=== PATIENT | female | born 1970 | race Caucasian/White ===

== ENCOUNTER 2016-06-04 16:15 | Emergency (ER) | payer OTHER ==
[2016-06-04 16:22] VITALS: TEMP 97.9
[2016-06-04] MEDS ORDERED: ONDANSETRON 4 MG/2 ML VIAL IVP STA (16:30)
[2016-06-04] MEDS ORDERED: KETOROLAC 30 MG/ML 1 ML VIAL IVP STA (16:30)
[2016-06-04] MEDS ORDERED: SODIUM CHLORIDE 0.9% 1,000 ML IV STA (16:30)
--- NOTE | 2016-06-04 16:34 | ED ---
Abdominal Pain HPI - General Chief Complaint: Abdominal Pain Stated Complaint: poss kidney/uti problem Time Seen by Provider: 06/04/16 16:24 Source: patient, RN notes reviewed Mode of arrival: ambulatory Limitations: no limitations - History of Present Illness Initial Comments: 38-year-old female presents emergency Department chief complaint of bilateral flank pain. Patient states this started last night. Patient states she took her Medications for back pain did not help. Patient states that she has history of back pain but this seems different. Patient states she has had some nausea with it. Patient denies any changes in bladder habits. Patient states she recently finished antibiotics for UTI. Patient states she was concerned due to the continued symptoms that she thought that she should be evaluated. Patient denies any recent fever, chills, shortness of breath, chest pain, abdominal pain, nausea vomiting, numbness or tingling, dysuria or hematuria, constipation or diarrhea, headaches or visual changes, or any other current symptoms. - Related Data Home Medications Medication Instructions Recorded Confirmed Citalopram Hydrobromide [CeleXA] 30 mg PO DAILY 12/13/14 06/04/16 Levothyroxine Sodium [Synthroid] 75 mcg PO DAILY 12/13/14 06/04/16 HYDROcodone/APAP 5-325MG [[place] 1 tab PO BID PRN 06/04/16 06/04/16 5-325] Ibuprofen/Diphenhydramine Cit 2 tab PO HS PRN 06/04/16 06/04/16 [Motrin Pm Caplet] Pregabalin [Lyrica] 75 mg PO BID PRN 06/04/16 06/04/16 Allergies Allergy/AdvReac Type Severity Reaction Status Date / Time Sulfa (Sulfonamide Allergy Rash/Hives Verified 06/04/16 16:36 Antibiotics) Review of Systems ROS Statement: Those systems with pertinent positive or pertinent negative responses have been documented in the HPI. ROS Other: All systems not noted in ROS Statement are negative. Past Medical History Past Medical History: Thyroid Disorder Additional Past Medical History / Comment(s): chronic digestive problems and 10 herniated discs History of Any Multi-Drug Resistant Organisms: None Reported Past Surgical History: No Surgical Hx Reported Past Psychological History: Anxiety, Depression Smoking Status: Never smoker Past Alcohol Use History: Occasional Past Drug Use History: Marijuana General Exam - General Exam Comments Initial Comments: General: The patient is awake and alert, in no distress, and does not appear acutely ill. Eye: Pupils are equal, round and reactive to light, extra-ocular movements are intact; there is normal conjunctiva bilaterally. No signs of icterus. Ears, nose, mouth and throat: There are moist mucous membranes and no oral lesions. Neck: The neck is supple, there is no tenderness. Cardiovascular: There is a regular rate and rhythm. No murmur, rub or gallop is appreciated. Respiratory: Lungs are clear to auscultation, respirations are non-labored, breath sounds are equal. No wheezes, stridor, rales, or rhonchi. Gastrointestinal: Soft, non-distended, non-tender abdomen without masses or organomegaly noted. There is no rebound or guarding present. No CVA tenderness. Bowel sounds are unremarkable. Back: There is no tenderness to palpation in the midline. There is no obvious deformity. No rashes noted. Musculoskeletal: Normal ROM, no tenderness, There is no pedal edema. There is no calf tenderness or swelling. Sensation intact. Pulses equal bilaterally 2+. Neurological: CN II-XII intact, There are no obvious motor or sensory deficits. Coordination appears grossly intact. Speech is normal. Skin: Skin is warm and dry and no rashes or lesions are noted. Psychiatric: Cooperative, appropriate mood & affect, normal judgment. Limitations: no limitations Course Vital Signs 06/04/16 06/04/16 16:19 17:01 Temperature 97.9 F Pulse Rate 91 67 Respiratory 18 18 Rate Blood Pressure 120/80 113/68 O2 Sat by Pulse 100 99 Oximetry Medical Decision Making - Medical Decision Making 46-year-old female presents for bilateral flank pain. Patient's CAT scan labwork is reviewed and negative. We did send the urine for culture. This time we discussed follow-up return parameters for we discussed that the child is not sick emergency room with continued outpatient follow-up is recommended. Patient states she understood and is agreement with the plan. This time she will be discharged. - Lab Data Result diagrams: 06/04/16 16:58 06/04/16 16:58 Lab Results 06/04/16 06/04/16 06/04/16 Range/Units 16:58 16:58 16:58 WBC 6.3 (3.8-10.6) k/uL RBC 3.84 (3.80-5.40) m/uL Hgb 11.7 (11.4-16.0) gm/dL Hct 35.2 (34.0-46.0) % MCV 91.6 (80.0-100.0) fL MCH 30.3 (25.0-35.0) pg MCHC 33.1 (31.0-37.0) g/dL RDW 12.1 (11.5-15.5) % Plt Count 262 (150-450) k/uL Neutrophils % 64 % Lymphocytes % 24 % Monocytes % 6 % Eosinophils % 4 % Basophils % 1 % Neutrophils # 4.0 (1.3-7.7) k/uL Lymphocytes # 1.5 (1.0-4.8) k/uL Monocytes # 0.4 (0-1.0) k/uL Eosinophils # 0.2 (0-0.7) k/uL Basophils # 0.0 (0-0.2) k/uL Sodium 142 (137-145) mmol/L Potassium 3.7 (3.5-5.1) mmol/L Chloride 106 (98-107) mmol/L Carbon Dioxide 26 (22-30) mmol/L Anion Gap 10 mmol/L BUN 9 (7-17) mg/dL Creatinine 0.60 (0.52-1.04) mg/dL Est GFR (MDRD) Af Amer >60 (>60 ml/min/1.73 sqM) Est GFR (MDRD) Non-Af >60 (>60 ml/min/1.73 sqM) Glucose 79 (74-99) mg/dL Calcium 8.8 (8.4-10.2) mg/dL Total Bilirubin 0.2 (0.2-1.3) mg/dL AST 20 (14-36) U/L ALT 28 (9-52) U/L Alkaline Phosphatase 52 (38-126) U/L Total Protein 5.9 L (6.3-8.2) g/dL Albumin 3.8 (3.5-5.0) g/dL Amylase 47 (30-110) U/L Lipase 108 (23-300) U/L Urine Color Yellow Urine Appearance Cloudy H (Clear) Urine pH 6.5 (5.0-8.0) Ur Specific [place] 1.016 (1.001-1.035) Urine Protein Negative (Negative) Urine Glucose (UA) Negative (Negative) Urine Ketones Negative (Negative) Urine Blood Trace H (Negative) Urine Nitrate Negative (Negative) Urine Bilirubin Negative (Negative) Urine Urobilinogen <2.0 (<2.0) mg/dL Ur Leukocyte Esterase Negative (Negative) Urine RBC 2 (0-5) /hpf Urine WBC 18 H (0-5) /hpf Ur Squamous Epith Cells 11 H (0-4) /hpf Amorphous Sediment Rare H (None) /hpf Urine Bacteria Many H (None) /hpf Urine Mucus Rare H (None) /hpf - Radiology Data Radiology results: report reviewed, image reviewed Disposition Clinical Impression: Bilateral flank pain Disposition: HOME SELF-CARE Condition: Stable Instructions: Flank Pain (ED) Additional Instructions: Please use medication as discussed. Please follow up with family doctor if symptoms have not improved over the next two days. Please return to the emergency room if your symptoms increase or worsen or for any other concerns. Referrals: Paul Castañeda MD [Primary Care Provider] - 1-2 days Time of Disposition: 18:24
[2016-06-04 17:35] LABS: Basophils % (A) 1 %; CH 30.4; CHCM 33.3; Eosinophils # (A) 0.2 k/uL (0-0.7); Eosinophils % (A) 4 %; HCT 35.2 % (34.0-46.0); HDW 2.28; HGB 11.7 gm/dL (11.4-16.0); Luc # (Auto) 0.14; Luc % (Auto) 2; Lymphocytes # (A) 1.5 k/uL (1.0-4.8); Lymphocytes % (A) 24 %; MCH 30.3 pg (25.0-35.0); MCHC 33.1 g/dL (31.0-37.0); MCV 91.6 fL (80.0-100.0); Mean Platelet Volume 7.8; Monocytes # (A) 0.4 k/uL (0-1.0); Monocytes % (A) 6 %; Neutrophils % (A) 64 %; RBC 3.84 m/uL (3.80-5.40); RDW 12.1 % (11.5-15.5); WBC 6.3 k/uL (3.8-10.6); WBC (Perox) 6.47
[2016-06-04 17:42] LABS: ALT 28 U/L (9-52); AST 20 U/L (14-36); Alkaline Phosphatase 52 U/L (38-126); Amylase 47 U/L (30-110); Anion Gap 10 mmol/L; Blood Urea Nitrogen 9 mg/dL (7-17); Calcium 8.8 mg/dL (8.4-10.2); Carbon Dioxide 26 mmol/L (22-30); Chloride 106 mmol/L (98-107); Glucose 79 mg/dL (74-99); Non-African American GFR(MDRD) >60 (>60 ml/min/1.73 sqM); Potassium 3.7 mmol/L (3.5-5.1); Sodium 142 mmol/L (137-145); Total Bilirubin 0.2 mg/dL (0.2-1.3); Total Protein 5.9 g/dL (6.3-8.2)
[2016-06-04 17:43] LABS: Amorphous Sediment,Urine Rare /hpf; Appearance,Urine Cloudy (Clear); Bacteria,Urine Many /hpf; Bilirubin,Urine Negative (Negative); Glucose,Urine (UA) Negative (Negative); Ketones,Urine Negative (Negative); Leukocyte Esterase,Urine Negative (Negative); Mucus,Urine Rare /hpf; Nitrite,Urine Negative (Negative); PH, Urine 6.5 (5.0-8.0); Particle Count 6614; Protein,Urine Negative (Negative); RBC,Urine 2 /hpf (0-5); Specific Gravity,Urine 1.016 (1.001-1.035); Squamous Epithelial Cell,Urine 11 /hpf (0-4); UA Billing (MACRO vs. MICRO) MICRO; Urobilinogen,Urine <2.0 mg/dL (<2.0); WBC,Urine 18 /hpf (0-5)
--- NOTE | 2016-06-04 18:07 | CT ---
EXAMINATION TYPE: CT abdomen pelvis wo con DATE OF EXAM: 06/04/2016 5:50 PM COMPARISON: NONE HISTORY: Patient complains of bilateral flank pain and increased urinary frequency. CT DLP: 482 mGycm Automated exposure control for dose reduction was used. TECHNIQUE: Helical acquisition of images was performed from the lung bases through the pelvis. FINDINGS: LUNG BASES: No significant abnormality is appreciated. LIVER/GB: No significant abnormality is appreciated. PANCREAS: No significant abnormality is seen. SPLEEN: No significant abnormality is seen. ADRENALS: No significant abnormality is seen. KIDNEYS: No significant abnormality is seen. No hydronephrosis. No renal or ureteral or bladder calci fications. ADENOPATHY: None visualized REPRODUCTIVE ORGANS: No acute process, though retroverted fibroid uterus is noted. URINARY BLADDER: No significant abnormality is seen. OSSEOUS STRUCTURES: No significant abnormality is seen. BOWEL: No significant abnormality is seen. IMPRESSION: No acute process, CT abdomen and pelvis without contrast.
[2016-06-04 18:33] VITALS: BP 109/72; PULSE 70; RESP 16
== END 2016-06-04 18:33 | disposition home or self-care (01) ==
LOC: EC 16:15
DX: R10.9 Unspecified abdominal pain (principal); E07.9 Disorder of thyroid, unspecified; F32.9 Major depressive disorder, single episode, unspecified; Z79.899 Other long term (current) drug therapy; Z88.2 Allergy status to sulfonamides
CPT/HCPCS: 99284; 96374; 96375; 96361; 36415; 80053; 82150; 83690; 85025; 81001; 87040; 87086; 74176; J2405; J1885

== ENCOUNTER → 2016-06-29 | Outpatient (CLI) | payer OTHER ==
--- NOTE | 2016-06-29 19:05 | CT ---
EXAMINATION TYPE: CT abdomen pelvis wo con DATE OF EXAM: 06/29/2016 6:55 PM COMPARISON: 06/04/2016 HISTORY: Bilateral upper flank pain CT DLP: 1004 mGycm Automated exposure control for dose reduction was used. TECHNIQUE: Helical acquisition of images was performed from the lung bases through the pelvis. FINDINGS: Lung bases are clear. There is no pleural effusion. Heart size is normal. Liver spleen pancreas appear normal. Gallbladder appears normal. Bile ducts are nondilated. There is no adrenal mass. Kidneys have normal size and contour. There is no hydronephrosis. There is no retroperitoneal adenopathy. There is no ascites. I see no intestinal wall thickening. There are no dilated loops. Appendix appears normal. There is no evidence of a pelvic mass. There are spondylotic changes in the lower lumbar spine. Uterus is retroverted. IMPRESSION: NEGATIVE CT SCAN OF THE ABDOMEN AND PELVIS. NORMAL APPENDIX. NO ADVERSE CHANGE COMPARED TO OLD EXAM.
== END | disposition home or self-care (01) ==
LOC: RADCTMAIN 18:28
PROVIDERS: ATTEND Family Medicine
DX: R31.9 Hematuria, unspecified (principal)
CPT/HCPCS: 74176

== ENCOUNTER 2016-07-26 08:49 | Day surgery (SDC) | payer OTHER ==
[2016-07-25 09:09] VITALS: BMI 27.4
[~2016-07-26 08:49] MED LIST: LACTATED RINGERS 1,000 ML IV SCH; LIDOCAINE 1% 20 ML VIAL (10MG/ML) FOR IV START INTRADERMA PRN
[2016-07-26 09:34] VITALS: RESP 18; TEMP 97.1
[2016-07-26] MEDS ORDERED: DEXAMETHASONE SOD PHOSPHATE 10 MG/ML 1 ML VIAL IV STA (09:45)
[2016-07-26] MEDS ORDERED: ONDANSETRON 4 MG/2 ML VIAL IVP STA (09:45)
[2016-07-26] MEDS ORDERED: MIDAZOLAM 2 MG/2 ML VIAL ONE (10:20)
[2016-07-26] MEDS ORDERED: PROPOFOL 10 MG/ML 20 ML VIAL IV ONE (10:20)
[2016-07-26] MEDS ORDERED: fentaNYL (PF) 50 MCG/ML 2 ML AMP ONE (10:20)
--- NOTE | 2016-07-26 10:49 | P.PCN ---
Date of Procedure: 07/26/16 Procedure(s) Performed: Procedure: Colonoscopy and polypectomy. Preoperative diagnosis: Abdominal pain and change in bowel habits. Postoperative diagnosis: 1. Small sigmoid polyp snared but no large polyps or cancer. 2. Exam to the cecum, otherwise, within normal limits. Preparation: HalfLytely prep. Sedation: Was provided by anesthesia. Brief clinical history: The patient is a 46-year-old female who is referred for this evaluation because of left-sided abdominal pains and issues with constipation. The patient requires laxatives on a regular basis otherwise would not have a bowel movement many days at the time. No bleeding or other alarm symptoms. No family history of colon cancer. She had a prior colonoscopy more than 8 years ago. Procedure: With the patient on her left lateral decubitus position and after informed consent and adequate sedation, the perianal area was inspected and it did not show any fissures or fistulas. There were no masses felt on digital rectal examination. The Olympus CFQ 160L video colonoscope was then inserted in the rectum in the usual fashion and advanced to the cecum. The mucosa appeared healthy. There was a small polyp in the sigmoid around 40 cm from the anal verge which was snared and retrieved by suction but there were no large polyps or cancer. No obvious diverticular disease or other pathology. The patient tolerated the procedure well. Plan: The patient was reassured. It is likely that her issues are related to constipation predominant irritable bowel syndrome. With the finding of polyps, I recommended repeat exam in 5 years. She will follow-up with you as planned.
[2016-07-26 11:12] VITALS: BP 112/71; PULSE 60
== END 2016-07-26 11:36 | disposition home or self-care (01) ==
LOC: ORWHC2ENDO 08:49
DX: D12.5 Benign neoplasm of sigmoid colon (principal); E07.9 Disorder of thyroid, unspecified; F39 Unspecified mood [affective] disorder; Z79.899 Other long term (current) drug therapy; Z88.2 Allergy status to sulfonamides
CPT/HCPCS: 81025; 88305; 45385; J2250; J3010; J2704; 99153

== ENCOUNTER → 2016-08-08 | Outpatient (CLI) | payer OTHER ==
--- NOTE | 2016-08-08 12:27 | WWHP ---
DATE OF SERVICE: 08/08/2016 CHIEF COMPLAINT: The patient is here for her routine gynecologic exam and mammogram. HPI: This is a 46-year-old G3, P2-0-1-2 with an LMP of 07/20/16. Her is status post vasectomy. The patient states her periods have gotten slightly more irregular over the last year and have been about every 3 to 6 weeks. She thinks she may have a yeast infection. Over the last 2 days she has noticed a thicker white discharge with pruritus and burning in the genital area. She denies odor. She did douche about a week before the vaginitis symptoms arose. She typically gets about 2 yeast infections per year. She denies any new sexual partners. PAST MEDICAL HISTORY: Hypothyroidism, chronic back problems and depression. Dr. Paul Castañeda is her primary care physician. MEDICATIONS: 1. Celexa 25 mg daily. 2. Synthroid 75 mcg daily. 3. [place] b.i.d. p.r.n. Allergies to SULFA, which caused a rash. PAST SURGICAL HISTORY: Vein stripping in the left leg in the past, colonoscopy in 2017. PAST OB HISTORY: Two vaginal deliveries and one voluntary termination of . 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 She has no history of STDs. SOCIAL HISTORY: She quit smoking in 2001 and has about 4 to 6 alcoholic drinks per week and occasionally uses marijuana. She denies any other drug use. She has been since 1992. She works at the [employer] in [place]. FAMILY HISTORY: Mother had some type of blood abnormality, [place] and diabetes. She denies family history of cancer of the breast, uterus, ovaries or colon. REVIEW OF SYSTEMS: She believes she has gained about 10 pounds over the last year. She denies respiratory, cardiac, or GI problems. PHYSICAL EXAM: Blood pressure 106/71. Height 5 feet 6 inches. Weight 175 pounds. Temperature 97.2, pulse 91. This a well-developed, well-nourished white female who is alert and oriented x3 in no acute distress. HEENT is within normal limits. NECK: Supple without mass or thyromegaly. CHEST AND LUNGS: Clear to auscultation. HEART: Regular rate and rhythm. Breasts are without mass or discharge. Axillary exam is negative for adenopathy. BACK: Negative for CVA tenderness. ABDOMEN: Soft, nontender, without palpable masses. PELVIC EXAM: Normal external genitalia. Cervix and vagina reveals some thick whitish discharge without odor. Cervix appears normal but is slightly friable upon doing the Pap smear. There is no evidence of prolapse. The uterus is multiparous, nongravid size and it is retroverted. There are no palpable adnexal masses or tenderness. Rectal exam was refused by the patient. EXTREMITIES: Nontender. IMPRESSION: 1. A 46-year-old female with Yoly vaginitis and otherwise normal gynecologic exam. 2. Possible history of uterine fibroids with incomplete database. PLAN: 1. Pap smear was performed. 2. Self breast examination was discussed. 3. Mammogram will be done today. 4. Diflucan 150 mg 1 p.o. q.48 hours x2 doses and 2 refills were given to the patient. She will get the refills if she has symptoms typical of a yeast infection. 5. We will obtain her CT scan results that apparently showed uterine fibroids to review. 6. She will return in one year and p.r.n.
--- NOTE | 2016-08-09 11:20 | MM ---
Reason for exam: screening (asymptomatic). Last mammogram was performed 1 year ago. Physical Findings: A clinical breast exam by your physician is recommended on an annual basis and results should be correlated with mammographic findings. MG Screening Mammo w CAD Bilateral CC and MLO view(s) were taken. Prior study comparison: August 08, 2015, bilateral MG screening mammo w CAD. August 02, 2014, bilateral MG screening mammo w CAD. The breast tissue is heterogeneously dense. This may lower the sensitivity of mammography. Left upper outer quadrant lymph node stable. No significant changes when compared with prior studies. ASSESSMENT: Benign, BI-RAD 2 RECOMMENDATION: Routine screening mammogram of both breasts in 1 year.
== END | disposition home or self-care (01) ==
LOC: WWCWWP 11:06
PROVIDERS: ATTEND Obstetrics & Gynecology
DX: Z12.31 Encounter for screening mammogram for malignant neoplasm of breast (principal)

== ENCOUNTER → 2016-10-22 | Outpatient (CLI) | payer OTHER ==
--- NOTE | 2016-10-23 10:44 | ECHOF ---
Referral Reason:R01.1 Cardiac Murmur MEASUREMENTS -------- HEIGHT: 167.6 cm WEIGHT: 77.1 kg BP: 121/70 RVIDd: 2.8 cm (< 3.3) IVSd: 1.0 cm (0.6 - 1.1) LVIDd: 4.2 cm (3.9 - 5.3) LVPWd: 0.9 cm (0.6 - 1.1) IVSs: 1.4 cm LVIDs: 2.8 cm LVPWs: 1.3 cm LA Diam: 3.2 cm (2.7 - 3.8) LAESV Index (A-L): 19.80 ml/m Ao Diam: 3.4 cm (2.0 - 3.7) AV Cusp: 2.1 cm (1.5 - 2.6) MV EXCURSION: 21.171 mm (> 18.000) MV EF SLOPE: 114 mm/s (70 - 150) EPSS: 1.2 cm MV E Lang: 0.94 m/s MV DecT: 214 ms MV A Lang: 0.76 m/s MV E/A Ratio: 1.25 RAP: 5.00 mmHg RVSP: 19.26 mmHg FINDINGS -------- Sinus rhythm. This was a technically adequate study. The left ventricular size is normal. Left ventricular wall thickness is normal. Overall left ventricular systolic function is normal with, an EF between 55 - 60 %. The right ventricle is normal in size. Normal LA size by volume 22+/-6 ml/m2. The right atrium is normal in size. The aortic valve is trileaflet and appears structurally normal. There is trace to mild mitral regurgitation. Mild tricuspid regurgitation present. Right ventricular systolic pressure is normal at < 35 mmHg. The pulmonic valve was not well visualized. The aortic root size is normal. Normal inferior vena cava with normal inspiratory collapse consistent with estimated right atrial pressure of 5 mmHg. The pericardium is normal. CONCLUSIONS -------- 1. Sinus rhythm. 2. Mild tricuspid regurgitation present. 3. Right ventricular systolic pressure is normal at < 35 mmHg. 4. The pulmonic valve was not well visualized. 5. The aortic root size is normal. 6. Normal inferior vena cava with normal inspiratory collapse consistent with estimated right atrial pressure of 5 mmHg. 7. The pericardium is normal. 8. This was a technically adequate study. 9. The left ventricular size is normal. 10. Left ventricular wall thickness is normal. 11. Overall left ventricular systolic function is normal with, an EF between 55 - 60 %. 12. The right ventricle is normal in size. 13. Normal LA size by volume 22+/-6 ml/m2. 14. The aortic valve is trileaflet and appears structurally normal. 15. There is trace to mild mitral regurgitation. STEERER: Isabella Leyva RDCS
== END | disposition home or self-care (01) ==
LOC: RADECHMAIN 14:45
PROVIDERS: ATTEND Family Medicine
DX: I08.1 Rheumatic disorders of both mitral and tricuspid valves (principal)
CPT/HCPCS: 93306

== ENCOUNTER → 2017-02-11 | Outpatient (CLI) | payer OTHER ==
--- NOTE | 2017-02-11 10:18 | XR ---
EXAMINATION TYPE: XR lumbar spine 2 or 3V DATE OF EXAM: 02/11/2017 CLINICAL HISTORY: History of disc herniation and chronic back pain with left sacroiliac joint pain TECHNIQUE: Frontal, lateral, and oblique images of the lumbar spine are obtained. COMPARISON: Lumbar spine radiographs dated 12/13/2014 FINDINGS: There are 5 lumbar type vertebral bodies identified. Facet arthropathy is seen at L3-L4, L 4-5, and L5-S1. There is slight retrolisthesis of L5 in relation to S1, overall unchanged from the pr ior exam. This creates at least mild to moderate neural foraminal narrowing. Bilateral sacroiliac scl erosis is seen, likely degenerative in nature and mild. The lumbar spine shows satisfactory alignment without evidence of acute fracture or dislocation. Mini mal intervertebral disc space narrowing is present at T12-L1 and L5-S1. Chronic superior endplate def ormity of L1 is present, unchanged from the prior. The oblique images appear within normal limits. The overlying soft tissue appears unremarkable. IMPRESSION: 1. Mild retrolisthesis of L5 on S1 creating at least mild to moderate bilateral neural foraminal narr owing. 2. No acute fracture or dislocation is seen in the lumbar spine. 3. Moderate facet arthropathy from L3 through S1 and mild degenerative disc disease.
== END | disposition home or self-care (01) ==
LOC: RADXRMAIN 09:41
PROVIDERS: ATTEND Family Medicine
DX: M99.73 Connective tissue and disc stenosis of intervertebral foramina of lumbar region (principal); M51.37 Other intervertebral disc degeneration, lumbosacral region; M43.17 Spondylolisthesis, lumbosacral region; M46.97 Unspecified inflammatory spondylopathy, lumbosacral region
CPT/HCPCS: 72100

== ENCOUNTER → 2017-03-20 | Outpatient (CLI) | payer OTHER ==
--- NOTE | 2017-03-20 08:45 | MR ---
EXAMINATION TYPE: MR lumbar spine wo con DATE OF EXAM: 03/20/2017 COMPARISON: NONE HISTORY: 47-year-old female, back pain, degeneration of lsp TECHNIQUE: Multiplanar, multisequence images of the lumbar spine were acquired. FINDINGS: Bulky appearance to the retroverted uterus. If pelvic/gynecologic symptoms, ultrasound can be perform ed. There is congenital spinal canal stenosis within the mid to lower lumbar spine with AP canal dimensio n of 1 cm opposite L4 and 1.2 cm opposite L5. Intervertebral disks in the mid to lower lumbar spine are degenerated, desiccated, narrowed, and diff usely bulging. There is vacuum phenomenon noted at L5-S1. Hypertrophic facet arthropathy mid to lower lumbar spine with ligamentum flavum thickening. Some prom inent dorsal epidural fat is also present such as a L4-L5. Vertebral body heights are preserved. Chronic limbus vertebra of L1. No suspicious bone marrow replac ement. Conus medullaris is normal. At T12-L1, there is mild disc bulge without canal or foraminal stenosis. At L1-L2, no significant canal or foraminal stenosis. At L2-L3, no significant canal or foraminal stenosis. At L3-L4, congenital canal narrowing with superimposed ligamentum flavum thickening, facet arthropath y, and bulging disc. Changes result in mild to moderate narrowing of the spinal canal with mild right neuroforaminal stenosis. Disc material may abut both traversing L4 nerve roots. At L4-L5, there is congenital canal narrowing with superimposed diffuse disc bulge, hypertrophic face t arthropathy, ligamentum flavum thickening. Changes result in moderate spinal canal stenosis with mi ld left neuroforaminal stenosis. At L5-S1, facet arthropathy with bulging disc. Changes result in moderate, moderate to severe left ne uroforaminal stenosis without spinal canal stenosis. Disc material closely approaches both traversing S1 nerve roots. No prevertebral or paravertebral soft tissue abnormality seen. IMPRESSION: 1. 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 At the L4 level, the AP canal d iameter is only 1 cm. 2. There is superimposed moderate degenerative disc disease along with hypertrophic facet arthropathy and ligamentum flavum thickening in the mid to lower lumbar spine. 3. Changes cause mild to moderate spinal canal stenosis at L3-L4 and mild right neuroforaminal stenos is. Disc material may abuts both traversing L4 nerve roots here. 4. At L4-L5, there is overall moderate spinal canal stenosis with mild left neuroforaminal stenosis. 5. At L5-S1, changes result in moderate, moderate to severe left neural foraminal stenosis without sp inal canal stenosis. 6. Incidental, bulky retroverted uterus. If gynecologic/pelvic symptoms, ultrasound can be performed.
== END | disposition home or self-care (01) ==
LOC: RADMRIMAIN 06:29
PROVIDERS: ATTEND Family Medicine
DX: M48.061 Spinal stenosis, lumbar region without neurogenic claudication (principal); M99.73 Connective tissue and disc stenosis of intervertebral foramina of lumbar region; M51.36 Other intervertebral disc degeneration, lumbar region; M46.86 Other specified inflammatory spondylopathies, lumbar region; M24.28 Disorder of ligament, vertebrae
CPT/HCPCS: 72148

== ENCOUNTER → 2017-04-24 | Outpatient (CLI) | payer OTHER ==
--- NOTE | 2017-04-25 22:36 | MR ---
EXAMINATION TYPE: MR Cspine/Tspine wo con DATE OF EXAM: 04/24/2017 COMPARISON: NONE HISTORY: 47-year-old female Pain and Numbness in arms and back TECHNIQUE: Multiplanar, multisequence images of the cervical followed by the thoracic spine were obta ined without IV contrast. FINDINGS: CERVICAL SPINE: No craniocervical junction abnormality, predental space widening, or prevertebral soft tissue swellin g. Scattered mild facet and uncovertebral joint degenerative change in the mid to lower cervical spine. Very early disc desiccation in the mid to lower cervical spine as well. Small disc herniations are pr esent at C5-C6 and C6-C7. At C5-C6, there is a left paracentral disc protrusion which mildly narrows the spinal canal abutting and indenting the ventral cord. However, there is no cord compression or myelopathic cord signal jones ge. No neuroforaminal stenosis. At C6-C7, small central disc protrusion. Mild facet degenerative change. Disc material abuts but does not the ventral cord. There is minimal central canal narrowing this level. No neural foraminal steno sis. No spinal canal or foraminal stenosis at the other levels. No prevertebral or paravertebral soft tissue abnormality seen. THORACIC SPINE: Vertebral body heights are preserved. Alignment is maintained. Fatty matrix hemangioma within T7 vertebral body. No suspicious bone marrow placement. Scattered small disc herniations are present, left paracentral at T6-T7, left paracentral aspect T7-T 8, right paracentral at T8-T9, and diffuse disc bulge at T12-L1. No large focal disc herniation seen. Scattered ligamentum flavum thickening in the mid to lower thoracic spine. Changes do not contribute to any significant spinal canal stenosis. Scattered mild facet degenerative changes also noted. Overall changes result in mild narrowing of the right T5-T6 and T8-T9 neural foramen. No significant neural foraminal stenosis. No prevertebral or paravertebral soft tissue abnormality. COMBINED IMPRESSION: CERVICAL SPINE: 1. Early degenerative disc disease at C5-C6 and C6-C7. 2. At C5-C6, there is a left paracentral disc herniation abutting and indenting the ventral cord and causing mild narrowing of the spinal canal. No ricky cord compression, myelopathic cord signal change , or canal compromise. 3. Small central disc herniation at C6/C7 minimally narrowing the central canal. Disc material may ab ut but does not flatten the cord. 4. No neuroforaminal stenosis. THORACIC SPINE: 1. Mild ligamentum flavum thickening mid to lower thoracic spine, scattered mild facet arthropathy, a nd small disc herniations (T6-T7, T7-T8, T8-T9, and T12-L1). These changes do not result in any signi ficant spinal canal stenosis. 2. Mild right C5-C6 and T8-T9 neuroforaminal stenosis.
== END | disposition home or self-care (01) ==
LOC: RADMRIMAIN 15:01
PROVIDERS: ATTEND Family Medicine
DX: M48.02 Spinal stenosis, cervical region (principal); M99.71 Connective tissue and disc stenosis of intervertebral foramina of cervical region; M99.72 Connective tissue and disc stenosis of intervertebral foramina of thoracic region; M50.222 Other cervical disc displacement at C5-C6 level; M50.322 Other cervical disc degeneration at C5-C6 level; M51.24 Other intervertebral disc displacement, thoracic region; M51.25 Other intervertebral disc displacement, thoracolumbar region; M46.84 Other specified inflammatory spondylopathies, thoracic region
CPT/HCPCS: 72141; 72146

== ENCOUNTER → 2017-12-10 | Outpatient (CLI) | payer OTHER ==
[2017-12-10 10:58] VITALS: BP 131/85; PULSE 73; TEMP 97.7; BMI 28.4
--- NOTE | 2017-12-10 11:36 | P.HPOB ---
History of Present Illness H&P Date: 12/10/17 Chief Complaint: The patient is here for her routine gynecologic exam and mammogram. This is a 47-year-old 012 with an LMP of 12/07/2017. The patient is complaining of severe menstrual periods for 2 to 3 days per month. Her menses have been about every 3 1/2 weeks. The menses can last, typically, 6 to 7 days. She has 2 to 3 days of heavier flow each cycle. On the heavy days, she has to change your protection up to every one hour and occasionally bleeds through her protection. She is otherwise without complaints. Her status post vasectomy. Review of Systems The patient's weight has been stable over the last year. She denies respiratory , cardiac, or G.I. problems. Past Medical History Past Medical History: Musculoskeletal Disorder, Thyroid Disorder (Hypothyroid) Additional Past Medical History / Comment(s): Chronic digestive problems, POSS IBS, CHRONIC CONSTIPATION; 10 herniated discs. Chronic back problems. 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 She has no history of STDs. History of Any Multi-Drug Resistant Organisms: None Reported Past Surgical History: No Surgical Hx Reported Additional Past Surgical History / Comment(s): LT LEG Vein stripping; colonoscopy 2017; EPIDURAL pain procedures Past Anesthesia/Blood Transfusion Reactions: Motion Sickness, Postoperative Nausea & Vomiting (PONV) Past Psychological History: Anxiety, Depression Smoking Status: Former smoker (Quit 2001) Past Alcohol Use History: Occasional (3 -4 per week) Additional Past Alcohol Use History / Comment(s): SMOKED FEW YEARS IN 20'S. Past Drug Use History: Marijuana Additional Drug Use History / Comment(s): OCC USE Additional History: She has been since 1992 and works at the [employer] in [place]. - Past Family History Mother Family Medical History: Cancer (Possible blood cancer), Diabetes Mellitus, Myocardial Infarction ([place]) Medications and Allergies Home Medications Medication Instructions Recorded Confirmed Type Citalopram Hydrobromide [CeleXA] 25 mg PO DAILY 12/13/14 12/10/17 History Levothyroxine Sodium [Synthroid] 75 mcg PO DAILY 12/13/14 12/10/17 History HYDROcodone/APAP 5-325MG [[place] 1 tab PO BID PRN 06/04/16 12/10/17 History 5-325] Fexofenadine/Pseudoephedrine 1 each PO DAILY 07/25/16 12/10/17 History [Sheila-D 12 Hour Tablet] Allergies Allergy/AdvReac Type Severity Reaction Status Date / Time Sulfa (Sulfonamide Allergy Rash/Hives Verified 12/10/17 10:52 Antibiotics) Exam Vital Signs Temp Pulse BP 12/10/17 10:53 97.7 F 73 131/85 Intake and Output 12/09/17 12/10/17 12/10/17 22:59 06:59 14:59 Other: Weight 79.832 kg Height 5'6", BMI 28.4. This is a well-developed well-nourished white female who is alert and oriented times 3 in no acute distress. HEENT: Within normal limits. NECK: Supple without mass or thyromegaly. CHEST AND LUNGS: Clear to auscultation. HEART: Regular rate and rhythm. BREASTS: Are without mass or discharge. AXILLARY EXAM: Negative for adenopathy. BACK: Negative for CVA tenderness. ABDOMEN: Soft, nontender, without palpable masses. PELVIC EXAM: Normal external genitalia . Cervix and vagina appear normal . There is no unusual discharge. There is no evidence of prolapse. The uterus is retroverted, nongravid size and nontender. There are no palpable adnexal masses or tenderness. RECTAL EXAM: negative for mass or tenderness and is negative for occult blood. EXTREMITIES: Nontender. IMPRESSION: 1. 47-year-old female with mild menorrhagia. Menses are fairly regular with 2 or 3 days of heavier flow. 2. Normal gynecologic exam. Her a status post vasectomy. PLAN: 1. Pap smear was deferred since she had a normal one last year. 2. Self breast awareness was discussed. 3. Screening mammogram will be done today. 4. Trial of meclofenamate sodium 100 mg TID PRN for heavy menstrual flow up to 6 days per cycle. An electronic prescription will be sent to [facility] pharmacy on [address]. 5. She will call if she is not having improvement with her menses. If this is the case, we will consider referral for endometrial ablation. 6. She will return in one year and PRN.
--- NOTE | 2017-12-12 11:25 | MM ---
Reason for exam: screening (asymptomatic). Last mammogram was performed 1 year and 4 months ago. Physical Findings: A clinical breast exam by your physician is recommended on an annual basis and results should be correlated with mammographic findings. MG Screening Mammo w CAD Bilateral CC and MLO view(s) were taken. Prior study comparison: August 08, 2016, bilateral MG screening mammo w CAD. August 08, 2015, bilateral MG screening mammo w CAD. The breast tissue is heterogeneously dense. This may lower the sensitivity of mammography. No significant changes when compared with prior studies. ASSESSMENT: Negative, BI-RAD 1 RECOMMENDATION: Routine screening mammogram of both breasts in 1 year.
== END | disposition home or self-care (01) ==
LOC: WWCWWP 10:38
PROVIDERS: ATTEND Obstetrics & Gynecology
DX: Z12.31 Encounter for screening mammogram for malignant neoplasm of breast (principal)
CPT/HCPCS: 77067

== ENCOUNTER → 2018-06-10 | Outpatient (CLI) | payer OTHER ==
--- NOTE | 2018-06-11 03:29 | MR ---
EXAMINATION TYPE: MR pedro/lsrpadeep wo/w con DATE OF EXAM: 06/10/2018 COMPARISON: None HISTORY: Neck and Back pain x12 years, Bilateral arm pain and weakness, gadavist 7.5Previous on PACS TECHNIQUE: Multiplanar, multisequence images of the lumbar spine and cervical spine is performed without and wit h IV contrast, utilizing 7.5 mL intravenous Gadavist FINDINGS: The cervical vertebra have normal alignment. There is moderate posterior disc herniation at C5-6 into the spinal canal and contact with the cervical spinal cord. Spinal canal is narrowed to 6. 7 mm. Cervical spinal cord has normal signal pattern. There is no edema. There is no compression frac ture. The remainder of the spinal canal is normal. I see no focal bone destruction. The lumbar vertebra have normal alignment. There is mild narrowing of the disc spaces and decreased s ignal from L3 to S1. There is also similar change at T12-L1. There is no compression fracture in the lumbar spine. There is mild posterior disc bulging at L3-4 L4-5 L5-S1. Posterior elements are intact. There is lateral recess stenosis due to facet arthropathy at L4-5. The contrast images show no pathologic enhancement of the cervical spine or lumbar spine.. IMPRESSION: There is mild to moderate posterior central C5-6 cervical disc herniation with 6.7 mm cervical minima l spinal stenosis. Spondylotic multiple levels in the lumbar spine. No fracture. Mild lateral recess stenosis at L4-5 du e to facet arthropathy. Small posterior disc bulging from L3 to S1.
== END ==
LOC: RADMRIMAIN 16:40
PROVIDERS: ATTEND Midwife
DX: M48.02 Spinal stenosis, cervical region (principal); M48.061 Spinal stenosis, lumbar region without neurogenic claudication; M50.122 Cervical disc disorder at C5-C6 level with radiculopathy; M51.17 Intervertebral disc disorders with radiculopathy, lumbosacral region; M46.96 Unspecified inflammatory spondylopathy, lumbar region
CPT/HCPCS: 72156; 72158; A9585

== ENCOUNTER → 2018-06-16 | Outpatient (CLI) | payer OTHER ==
--- NOTE | 2018-06-18 07:20 | MR ---
EXAMINATION TYPE: MR thoracic spine wo/w con DATE OF EXAM: 06/16/2018 COMPARISON: 04/24/2017 HISTORY: 48-year-old female radiculopathy, cervical thoracic region Back Pain. Technique: Multiplanar, multisequence images of the thoracic spine were obtained before and after adm inistration of 7.5 mL intravenous Gadavist gadolinium contrast. FINDINGS: Vertebral body heights are preserved and alignment is maintained. Redemonstrated fatty matrix hemangioma within the T7 vertebral body. Otherwise, no suspicious bone ma rrow replacement. Normal course, caliber, and signal intensity of the thoracic spinal cord. Conus medullaris is normal. Again, no large focal disc herniation is seen though small left paracentral disc herniations are rede monstrated such as that T6-T7, T7-T8, and T9-T10. Small right paracentral herniation at T8-T9. These do not have any appreciable mass effect onto the spinal cord or cause any ricky compromise of the spi nal canal. The small left-sided T7-T8 and T9-T10 may be minimally larger. Scattered mild facet degenerative change and scattered mild ligamentum flavum thickening mid to lower thoracic spine. Changes continue to contribute to a mild right-sided neuroforaminal stenosis at T8-T 9 and on the left at T6-C7. Disc desiccation and mild disc height loss with anterior disc ossified complex redemonstrated at T12- L1. No suspicious enhancement within the spinal canal. IMPRESSION: 1. The exam is relatively stable with scattered mild facet degenerative change and mild degenerative disc disease characterized by tiny paracentral herniations in the mid to lower thoracic spine. While these may be minimally larger at T7-T8 and T9-T10, they still do not contribute to any appreciable ma ss effect onto the spinal cord or canal compromise. 2. Mild facet arthropathy continues to cause mild neural foraminal narrowing at a couple levels as ab ove.
== END ==
LOC: RADMRIMAIN 15:07
PROVIDERS: ATTEND Family Medicine
DX: M99.73 Connective tissue and disc stenosis of intervertebral foramina of lumbar region (principal); M51.15 Intervertebral disc disorders with radiculopathy, thoracolumbar region; M47.26 Other spondylosis with radiculopathy, lumbar region; M46.96 Unspecified inflammatory spondylopathy, lumbar region
CPT/HCPCS: 72157; A9585

== ENCOUNTER → 2019-04-20 | Outpatient (CLI) | payer OTHER ==
--- NOTE | 2019-04-21 09:36 | MM ---
Reason for exam: screening (asymptomatic). Last mammogram was performed 1 year and 4 months ago. Physical Findings: A clinical breast exam by your physician is recommended on an annual basis and results should be correlated with mammographic findings. MG Screening Mammo w CAD Bilateral CC and MLO view(s) were taken. Prior study comparison: December 10, 2017, bilateral MG screening mammo w CAD. August 08, 2016, bilateral MG screening mammo w CAD. The breast tissue is heterogeneously dense. This may lower the sensitivity of mammography. No suspicious abnormality. No significant changes when compared with prior studies. ASSESSMENT: Negative, BI-RAD 1 RECOMMENDATION: Routine screening mammogram of both breasts in 1 year.
== END | disposition home or self-care (01) ==
LOC: RADMAMWWP 10:09
PROVIDERS: ATTEND Family Medicine
DX: Z12.31 Encounter for screening mammogram for malignant neoplasm of breast (principal)
CPT/HCPCS: 77067

== ENCOUNTER → 2019-06-22 | Outpatient (CLI) | payer OTHER ==
[2019-06-22 16:45] LABS: Basophils % (A) 0 %; Eosinophils # (A) 0.1 k/uL (0-0.7); Eosinophils % (A) 2 %; HCT 33.5 % (34.0-46.0); HGB 10.5 gm/dL (11.4-16.0); Lymphocytes # (A) 1.9 k/uL (1.0-4.8); Lymphocytes % (A) 27 %; MCH 26.1 pg (25.0-35.0); MCHC 31.4 g/dL (31.0-37.0); MCV 83.3 fL (80.0-100.0); Mean Platelet Volume 9.5; Monocytes # (A) 0.5 k/uL (0-1.0); Monocytes % (A) 7 %; Neutrophils # (A) 4.2 k/uL (1.3-7.7); Neutrophils % (A) 61 %; Platelet Count 304 k/uL (150-450); RBC 4.02 m/uL (3.80-5.40); RDW 15.5 % (11.5-15.5); WBC 6.9 k/uL (3.8-10.6)
== END | disposition home or self-care (01) ==
LOC: LABPAT 15:43
PROVIDERS: ATTEND Obstetrics & Gynecology
DX: Z01.818 Encounter for other preprocedural examination (principal); Z01.812 Encounter for preprocedural laboratory examination
CPT/HCPCS: 36415; 85025; 93005

== ENCOUNTER 2019-06-30 06:10 | Day surgery (SDC) | payer OTHER ==
[2019-06-25 11:21] VITALS: BMI 28.2
--- NOTE | 2019-06-29 18:03 | P.HPOB ---
History of Present Illness H&P Date: 06/29/19 Chief Complaint: Menorrhagia Emerita is a 49-year-old female with the complaint of heavy vaginal bleeding. Her bleeding has been so significant that she has had to start iron therapy. She relates that her bleeding has been heavy for a number of years and she has a fibroid uterus. An endometrial biopsy was done showing benign tissue and she is therefore scheduled for a hysteroscopy with NovaSure. Risks/benefits/alternatives reviewed with the patient in detail and all q uestions were answered for her prior to proceeding to the operating room. Prior to this her heavy bleeding was managed by her primary care provider. Past Medical History Past Medical History: Musculoskeletal Disorder, Osteoarthritis (OA), Thyroid Disorder Additional Past Medical History / Comment(s): Chronic digestive problems, poss ible IBS, CHRONIC CONSTIPATION, 13 herniated discs, chronic back pain/problems, uterine fibroids. "Spinal cord compression in neck." History of Any Multi-Drug Resistant Organisms: None Reported Past Surgical History: No Surgical Hx Reported Additional Past Surgical History / Comment(s): Left leg vein stripping and laser, Colonoscopy, Epidual pain procedures. Past Anesthesia/Blood Transfusion Reactions: Motion Sickness, Postoperative Nausea & Vomiting (PONV) Past Psychological History: Anxiety, Depression Smoking Status: Former smoker Past Alcohol Use History: Occasional Additional Past Alcohol Use History / Comment(s): SMOKED FEW YEARS IN HER 20'S. Past Drug Use History: Marijuana Additional Drug Use History / Comment(s): OCCASIONAL MARAJUANA USE. Aware no use 24 hrs prior to procedure. - Past Family History Mother Family Medical History: Cancer, Diabetes Mellitus, Myocardial Infarction ([place]) Medications and Allergies Home Medications Medication Instructions Recorded Confirmed Type Levothyroxine Sodium [Synthroid] 75 mcg PO QAM 12/13/14 06/25/19 History Citalopram Hydrobromide [CeleXA] 40 mg PO QAM 06/25/19 06/25/19 History Multivitamins, Thera [Multivitamin 1 tab PO DAILY 06/25/19 06/25/19 History (formulary)] Naproxen Sodium [Aleve] 440 mg PO DAILY 06/25/19 06/25/19 History Pregabalin [Lyrica] 150 - 300 mg PO BID 06/25/19 06/25/19 History Allergies Allergy/AdvReac Type Severity Reaction Status Date / Time Penicillins Allergy Rash/Hives Verified 06/25/19 11:22 Sulfa (Sulfonamide Allergy Rash/Hives Verified 06/25/19 11:05 Antibiotics) Exam Osteopathic Statement: *. No significant issues noted on an osteopathic structural exam other than those noted in the History and Physical/Consult. - OBG Physical Exam Breast: both: normal (no masses) Abdomen: bowel sounds normal, no diffuse tenderness, no bruit present, no guarding noted, no hepatomegaly, no splenomegaly, no mass Vulva: both: normal Vagina: normal moisture, no discharge Cervix: no lesion, no discharge Uterus: normal size, normal contour Adnexa: both: normal Anus/Rectum: normal perianal skin, no rectal mass, no hemorrhoids, heme negative
[~2019-06-30 06:10] MED LIST changes: +DEXAMETHASONE SOD PHOSPHATE 10 MG/ML 1 ML VIAL IV ONE; +HYDROmorphone 0.5 MG/0.5 ML SYRINGE IVP PRN; +KETOROLAC 30 MG/ML 1 ML VIAL IVP SCH; +LIDOCAINE 1% (10MG/ML) FOR IV START INTRADERMA PRN; -LIDOCAINE 1% 20 ML VIAL (10MG/ML) FOR IV START INTRADERMA PRN; +METOCLOPRAMIDE 5 MG/ML 2 ML VIAL IVP PRN; +MIDAZOLAM 2 MG/2 ML VIAL IV PRN; +ONDANSETRON 4 MG/2 ML VIAL IVP ONE; +Pre Op ABX Message 1 EACH MISC MISCELLANE ONE
[2019-06-30] MEDS ORDERED: SCOPOLAMINE 1.5MG/72HR PATCH TRANSDERM ONE (06:56)
[2019-06-30] MEDS ORDERED: LIDOCAINE 1% INJ 10MG/ML (20 ML MDV) ONE (07:19)
[2019-06-30] MEDS ORDERED: MIDAZOLAM 2 MG/2 ML VIAL ONE (07:19)
[2019-06-30] MEDS ORDERED: KETOROLAC 30 MG/ML 1 ML VIAL ONE (07:19)
[2019-06-30] MEDS ORDERED: fentaNYL (PF) 50 MCG/ML 2 ML AMP ONE (07:19)
[2019-06-30] MEDS ORDERED: PROPOFOL 10 MG/ML 20 ML VIAL IV ONE (07:19)
--- NOTE | 2019-06-30 08:19 | P.OP ---
Date of Procedure: 06/30/19 Preoperative Diagnosis: Menorrhagia Postoperative Diagnosis: Same with fibroid uterus Procedure(s) Performed: D&C with hysteroscopy: Failed NovaSure Anesthesia: SUMAN Surgeon: Darren Godoy Estimated Blood Loss (ml): 5 Pathology: other (Uterine curettings) Condition: stable Disposition: same day Operative Findings: Posterior fibroid noticed. Uterus is retroverted. No perforation is visualized however, NovaSure would not pass patency test Description of Procedure: Patient was taken to the operating suite where a general anesthetic was found be adequate. She was prepped and draped in normal sterile fashion and placed in dorsal lithotomy position. Initially a speculum was inserted into the vagina and anterior lip of the cervix was grasped with an Allis clamp. Cervix was then dilated and sounded to 10 cm. Camera was then inserted. No gross pathology noted other than a posterior fibroid and possible polyp. Gentle sharp curettings were obtained to verify polyp. Once this was completed NovaSure system was inserted with length of 5 and a width of 4.2 it was tested. It did not pass patency test. Multiple attempts were done. Repositioning and good closure of cervix attempted. Second machine attempted. Second handpiece attempted. System would not pass patency test unclear reason other than potentially the posterior fibroid deflecting the device. Once we tried multiple attempts and would not pass patency test procedure was terminated area and camera was inserted to separate times and no perforation is visualized. Unclear etiology for failed patency test. All instruments were then removed. Sponge, lap, needle counts were correct 2. Patient was then taken to the recovery room in stable and satisfactory condition. Plan - Discharge Summary Discharge Rx Participant: Yes New Discharge Prescriptions: New Ibuprofen [Motrin] 600 mg PO Q6HR PRN #30 tab PRN Reason: Pain No Action Levothyroxine Sodium [Synthroid] 75 mcg PO QAM Pregabalin [Lyrica] 150 - 300 mg PO BID Naproxen Sodium [Aleve] 440 mg PO DAILY Multivitamins, Thera [Multivitamin (formulary)] 1 tab PO DAILY Citalopram Hydrobromide [CeleXA] 40 mg PO QAM Discharge Medication List Levothyroxine Sodium [Synthroid] 75 mcg PO QAM 12/13/14 [History] Citalopram Hydrobromide [CeleXA] 40 mg PO QAM 06/25/19 [History] Multivitamins, Thera [Multivitamin (formulary)] 1 tab PO DAILY 06/25/19 [History] Naproxen Sodium [Aleve] 440 mg PO DAILY 06/25/19 [History] Pregabalin [Lyrica] 150 - 300 mg PO BID 06/25/19 [History] Ibuprofen [Motrin] 600 mg PO Q6HR PRN #30 tab 06/30/19 [Rx] Follow up Appointment(s)/Referral(s): Darren Godoy DO [Doctor of Osteopathic Medicine] - 1 Week Patient Instructions/Handouts: *Surgery [facility] - (Anesthesia) Discharge Instructions Outpatient Surgery, *Surgery [facility] - Scopalamine Patch Instructions, Hysteroscopy (DC), Endometrial Ablation (DC) Activity/Diet/Wound Care/Special Instructions: No heavy lifting or driving today. Pelvic rest today. Call for any high temperatures, heavy bleeding, or severe pain Discharge Disposition: HOME SELF-CARE
[2019-06-30 08:23] VITALS: TEMP 97.3
[2019-06-30 09:53] VITALS: BP 125/80; PULSE 69; RESP 18
== END 2019-06-30 09:56 | disposition home or self-care (01) ==
LOC: OR 06:10
PROVIDERS: ATTEND Obstetrics & Gynecology
DX: D25.9 Leiomyoma of uterus, unspecified (principal); M19.90 Unspecified osteoarthritis, unspecified site; E07.9 Disorder of thyroid, unspecified; K59.09 Other constipation; G89.29 Other chronic pain; G95.20 Unspecified cord compression; F32.9 Major depressive disorder, single episode, unspecified; F41.9 Anxiety disorder, unspecified; Z87.891 Personal history of nicotine dependence; Z83.3 Family history of diabetes mellitus; Z82.49 Family history of ischemic heart disease and other diseases of the circulatory system; Z80.9 Family history of malignant neoplasm, unspecified; Z79.890 Hormone replacement therapy; Z79.1 Long term (current) use of non-steroidal anti-inflammatories (NSAID); Z79.899 Other long term (current) drug therapy; Z88.0 Allergy status to penicillin; Z88.2 Allergy status to sulfonamides
CPT/HCPCS: 81025; 88305; 58563; J2250; J1100; J2405; J2001; J3010; J1885; J2704; J1170

== ENCOUNTER → 2019-12-15 | Outpatient (CLI) | payer OTHER ==
[2019-12-15 11:27] VITALS: BP 109/76; PULSE 76; RESP 18; TEMP 98.2
--- NOTE | 2019-12-15 12:42 | P.HPOB ---
History of Present Illness H&P Date: 12/15/19 Chief Complaint: The patient is here for her routine gynecologic exam. This is a 49-year-old 012 with an LMP of 11/26/2019. Her is status post vasectomy. The patient states her menstrual periods have become quite long and quite heavy. This is not new for her. She states she saw Dr. Godoy earlier this year and went for a NovaSure endometrial ablation this was attempted on 06/30/2019. His notes indicate she underwent a hysteroscopy, D&C and NovaSure was also attempted. When the NovaSure was attempted, it did not pass the "patency test" and the ablation could not be done. He states that no signs of perforation was noted with hysteroscopy. The patient states she did not take the meclofenamate sodium that was previously prescribed for her hypermenorrhea. Her menses are regular every month lasting 7-12 days 3 days of heavy flow where she has to change her pads and tampons every 1 hour. She has experienced occasional hot flashes that are not very bad. She states her says that the vagina feels like "sand paper" with sexual intercourse. The patient has tried lubrication. She had a previous Pap smear which showed HPV according to the patient. She had no further follow-up and was told she may need to have Pap smears more often. She is wondering if there is any signs of genital warts. She has noticed slight irritation around the rectal opening. She states she did have an extramarital sexual encounter about 3 years ago. Review of Systems She is getting about 8 pounds over the past 3 years. She denies respiratory or cardiac problems. GI: Frequent constipation. Past Medical History Past Medical History: Musculoskeletal Disorder, Thyroid Disorder Additional Past Medical History / Comment(s): Hypothyroid. Chronic digestive pr oblems, POSS IBS, CHRONIC CONSTIPATION; 10 herniated discs. Chronic back problems. 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 HPV on pap in the past. History of Any Multi-Drug Resistant Organisms: None Reported Additional Past Surgical History / Comment(s): LT LEG Vein stripping; colonoscopy 2016; EPIDURAL pain procedures. H/S, D&C and failed endometrial ablation 06/2019. Past Anesthesia/Blood Transfusion Reactions: Motion Sickness, Postoperative Nausea & Vomiting (PONV) Past Psychological History: Anxiety, Depression Smoking Status: Current every day smoker (1 or 2 per day) Past Alcohol Use History: Occasional (6 per month) Additional Past Alcohol Use History / Comment(s): SMOKED FEW YEARS IN . Past Drug Use History: Marijuana Additional Drug Use History / Comment(s): OCC USE Additional History: She has been since 1992. She works at [employer] for [employer]. - Past Family History Mother Family Medical History: Cancer, Diabetes Mellitus, Myocardial Infarction ([place]) Medications and Allergies Home Medications Medication Instructions Recorded Confirmed Type Levothyroxine Sodium [Synthroid] 75 mcg PO QAM 12/13/14 12/15/19 History Citalopram Hydrobromide [CeleXA] 40 mg PO QAM 06/25/19 12/15/19 History Multivitamins, Thera [Multivitamin 1 tab PO DAILY 06/25/19 12/15/19 History (formulary)] Naproxen Sodium [Aleve] 440 mg PO DAILY 06/25/19 12/15/19 History Pregabalin [Lyrica] 150 - 300 mg PO BID 06/25/19 12/15/19 History Ibuprofen [Motrin] 600 mg PO Q6HR PRN #30 tab 06/30/19 12/15/19 Rx Allergies Allergy/AdvReac Type Severity Reaction Status Date / Time Penicillins Allergy Rash/Hives Verified 12/15/19 11:17 Sulfa (Sulfonamide Allergy Rash/Hives Verified 12/15/19 11:17 Antibiotics) Exam Vital Signs Temp Pulse Resp BP Pulse Ox 12/15/19 11:18 98.2 F 76 18 109/76 100 Intake and Output 12/14/19 12/15/19 12/15/19 22:59 06:59 14:59 Other: Weight 83.007 kg Height 5 feet 5 inches, weight 183 pounds, BMI 30.5. This is a well-developed well-nourished white female who is alert and oriented times 3 in no acute distress. HEENT: Within normal limits. NECK: Supple without mass or thyromegaly. CHEST AND LUNGS: Clear to auscultation. HEART: Regular rate and rhythm. BREASTS: Are without mass or discharge. AXILLARY EXAM: Negative for adenopathy. BACK: Negative for CVA tenderness. ABDOMEN: Soft, nontender, without palpable masses. PELVIC EXAM: Normal external genitalia. Cervix and vagina appear normal. There is no evidence of genital warts. There is no unusual discharge. There is no evidence of prolapse. The uterus is retroverted, 8-10 week size and nontender. The uterus is slightly irregular and firm consistent with a fibroid uterus. There are no palpable adnexal masses or tenderness. RECTAL EXAM: Rectovaginal exam is negative for mass or tenderness and is negative for occult blood. EXTREMITIES: Nontender. Screening mammogram was negative on 04/20/2019. The patient had a pelvic ultrasound on 04/05/2017 which showed uterine fibroids measuring 4.4 cm and 4.1 cm. IMPRESSION: 1. 49-year-old female with menorrhagia. 2. Fibroid uterus which may be contributing to her menorrhagia. The largest fibroid measured 4.4 cm I ultrasound on 04/05/2017. 3. History of HPV on a previous Pap smear. PLAN: 1. Pap smear with high-risk HPV testing was obtained. 2. Self breast awareness was discussed with the patient. 3. Screening mammogram will be due in April and the order slip was given to the patient for this. 4. Pelvic ultrasound was recommended to further evaluate her menorrhagia and fibroid uterus. 5. Trial of meclofenamate sodium 100 mg by mouth 3 times a day when necessary for heavy menstrual flow up to 6 days per cycle. The electronic prescription will be sent to my her pharmacy in [place]. 6. We have had a long discussion regarding her menorrhagia. Since she had a failed endometrial ablation and because of the medium-sized uterine fibroids, I feel hysterectomy or conservative management would be the best options to consider. If she does well with the meclofenamate sodium, we will consider going without additional surgery. If she does not have improvement with her menstrual periods or the uterine fibroids have significantly increased in size, she will more strongly consider a hysterectomy. 7. She will call if she is not having significant improvement with the meclofenamate sodium in approximately 3 months. 8. She was advised to return in one year for her annual well woman exam and as needed.
--- NOTE | 2019-12-16 14:09 | P.PN ---
Progress Note - Text Progress Note Date: 12/16/19 I was contacted by my her pharmacy saying that the patient's insurance does not cover meclofenamate sodium. The prescription was canceled and a new prescription for mefenamic acid 250 mg by mouth every 6 hours when necessary for heavy menstrual flow up to 5 days per cycle was sent electronically. I called the pharmacy and the director state pharmacy was unable to tell me if this medication was covered until a prescription is sent in. Therefore, the new prescription was sent.
--- NOTE | 2019-12-23 09:53 | P.PN ---
Progress Note - Text Progress Note Date: 12/23/19 OUTPATIENT FOLLOW-UP NOTE TEST(S)/RESULTS: Pap smear from 12/15/2019 was negative with positive high risk HPV testing. HPV types 16 and 18 were negative. METHOD OF NOTIFICATION: The patient was notified by phone. PATIENT COMMENTS: DIAGNOSIS: Negative Pap smear with positive high-risk HPV and negative types 16 and 18. DISCUSSION: We will plan on repeating both Pap smear and high-risk HPV testing in 1 year. I have stressed the importance of having this done. At that time if high-risk HPV testing is still positive or low-grade changes or greater are noticed with the cytology, consider colposcopy at that time. PLAN: She was advised to return in one year for her annual well woman exam.
== END | disposition home or self-care (01) ==
LOC: WWCWWP 11:07
PROVIDERS: ATTEND Obstetrics & Gynecology
DX: Z53.9 Procedure and treatment not carried out, unspecified reason (principal)

== ENCOUNTER → 2020-02-29 | Outpatient (CLI) | payer OTHER ==
--- NOTE | 2020-03-01 04:12 | MR ---
EXAMINATION TYPE: MR pedro/aysha wo con DATE OF EXAM: 02/29/2020 COMPARISON: 06/10/2018 HISTORY: Neck and lower back pain, BUE/BLE radiculopathy, headaches Multiplanar multiecho imaging of the cervical and lumbar spine was performed without contrast. Cervical vertebra have normal alignment. There is posterior disc herniation at C5-6 with narrowing of the spinal canal. There is very slight effacement of the cervical cord. The canal is narrowed to 7 m m at C5-6. There is otherwise developmentally adequate spinal canal in the cervical spine. Brainstem is intact. There is no compression fracture. There is slight disc space narrowing at C5-6 and C6-7. T here is no cervical paraspinal mass. The lumbar vertebra have overall fairly normal alignment. There is a few millimeter anterior subluxat ion of L4 in relation L5. I see no spondylolysis. There is some mild narrowing and disc space decreas ed signal at L3-4 and L4-5 and L5-S1. There is hypertrophic facet arthropathy. There is a mild to mod erate spinal stenosis at L4-5 due to subluxation deformity and facet arthropathy. I see no focal bone destruction. There is no lumbar paraspinal mass. The posterior elements are intact. Sacroiliac joint s appear intact. IMPRESSION: There is a mild spinal stenosis at C5-6 due to posterior cervical disc herniation. This appears not s ignificantly different than previous exam. Degenerative disc changes in the lower lumbar spine. Minimal subluxation at L4-5 appears slightly wor se than old exam. The spinal stenosis at L4-5 is slightly worse than old exam.
== END | disposition home or self-care (01) ==
LOC: RADMRIMAIN 18:37
PROVIDERS: ATTEND Psychiatry & Neurology Neurology
DX: M48.02 Spinal stenosis, cervical region (principal); M48.061 Spinal stenosis, lumbar region without neurogenic claudication; M51.36 Other intervertebral disc degeneration, lumbar region; Z88.0 Allergy status to penicillin; Z88.2 Allergy status to sulfonamides
CPT/HCPCS: 72141; 72148

== ENCOUNTER → 2020-03-10 | Outpatient (CLI) | payer OTHER ==
--- NOTE | 2020-03-10 13:22 | US ---
EXAMINATION TYPE: US pelvic complete DATE OF EXAM: 03/10/2020 COMPARISON: NONE CLINICAL HISTORY: N92.0 MENORRHAGIA. Menorrhagia, known fibroids, 2, para 2 TECHNIQUE: . Transabdominal sonographic images of the pelvis were acquired. Date of LMP: 02/19/2020 EXAM MEASUREMENTS: Uterus: 8.8 x 6.4 x 6.5 cm Endometrial Stripe: 0.6 cm Right Ovary: 2.7 x 2.1 x 2.1 cm Left Ovary: 4.0 x 3.3 x 2.8 cm 1. Uterus: retroverted, heterogeneous, 2 fibroids seen measuring 4.0 x 3.8 x 3.7cm and 3.2 x 3.7 x 3 .9cm 2. Endometrium: appears wnl 3. Right Ovary: wnl 4. Left Ovary: 2.1 x 2.1 x 1.9cm cystic area 5. Bilateral Adnexa: wnl 6. Posterior cul-de-sac: wnl Urinary bladder is sonolucent. IMPRESSION: 1. Uterine fibroids. 2. Left ovarian cyst.
== END | disposition home or self-care (01) ==
LOC: RADUSWWP 09:28
PROVIDERS: ATTEND Obstetrics & Gynecology
DX: D25.9 Leiomyoma of uterus, unspecified (principal); N83.202 Unspecified ovarian cyst, left side
CPT/HCPCS: 76856

== ENCOUNTER → 2020-09-19 | Outpatient (CLI) | payer OTHER ==
[2020-09-19 16:18] LABS: Anisocytosis Slight; Basophils # (A) 0.1 k/uL (0-0.2); Basophils % (A) 1 %; Eosinophils # (A) 0.1 k/uL (0-0.7); Eosinophils % (A) 3 %; HCT 35.9 % (34.0-46.0); HGB 11.9 gm/dL (11.4-16.0); Lymphocytes # (A) 1.8 k/uL (1.0-4.8); Lymphocytes % (A) 34 %; MCH 29.2 pg (25.0-35.0); MCHC 33.3 g/dL (31.0-37.0); MCV 87.7 fL (80.0-100.0); Mean Platelet Volume 9.2; Monocytes # (A) 0.4 k/uL (0-1.0); Monocytes % (A) 8 %; Neutrophils # (A) 2.7 k/uL (1.3-7.7); Neutrophils % (A) 52 %; Platelet Count 260 k/uL (150-450); RBC 4.09 m/uL (3.80-5.40); RDW 16.7 % (11.5-15.5); WBC 5.3 k/uL (3.8-10.6)
[2020-09-19 16:25] LABS: African American GFR (CKD) >90 (>60 ml/min/1.73 sqM); Anion Gap 5 mmol/L; Blood Urea Nitrogen 11 mg/dL (7-17); Calcium 9.3 mg/dL (8.4-10.2); Carbon Dioxide 29 mmol/L (22-30); Chloride 104 mmol/L (98-107); Glucose 87 mg/dL (74-99); Non-African American GFR(CKD) >90 (>60 ml/min/1.73 sqM); Potassium 3.9 mmol/L (3.5-5.1); Sodium 138 mmol/L (137-145)
== END | disposition home or self-care (01) ==
LOC: LABPAT 10:38
PROVIDERS: ATTEND Obstetrics & Gynecology
DX: Z01.818 Encounter for other preprocedural examination (principal)
CPT/HCPCS: 36415; 80048; 85025; 86850; 86900; 86901; 93005

== ENCOUNTER 2020-09-26 05:26 | Day surgery (SDC) | payer OTHER ==
[2020-09-19 09:58] VITALS: BMI 28.2
[2020-09-26] MEDS ORDERED: SCOPOLAMINE 1.5MG/72HR PATCH TRANSDERM ONE (05:53)
[2020-09-26] MEDS ORDERED: DEXAMETHASONE SOD PHOSPHATE 4 MG/ML 1 ML VIAL IV ONE (05:53)
[2020-09-26] MEDS ORDERED: LIDOCAINE 1% (10MG/ML) FOR IV START INTRADERMA PRN (05:53)
[2020-09-26] MEDS ORDERED: LACTATED RINGERS 1,000 ML IV SCH (05:53)
[2020-09-26] MEDS ORDERED: ONDANSETRON 4 MG/2 ML VIAL IVP ONE (05:53)
--- NOTE | 2020-09-26 06:33 | P.HPOB ---
History of Present Illness H&P Date: 09/26/20 Chief Complaint: menorrhagia 50 year old presents for TLH with da stevan and diagnostic cystoscopy, possible JONAH BSO for menorrhagia. She has an 8cm uterus on US with fibroids measuring 4 and 3cm. Review of Systems All systems: negative Constitutional: Denies chills, Denies fever Eyes: denies blurred vision, denies pain Ears, nose, mouth and throat: Denies headache, Denies sore throat Cardiovascular: Denies chest pain, Denies shortness of breath Respiratory: Denies cough Gastrointestinal: Denies abdominal pain, Denies diarrhea, Denies nausea, Denies vomiting Genitourinary: Denies dysuria, Denies hematuria Musculoskeletal: Denies myalgias Integumentary: Denies pruritus, Denies rash Neurological: Denies numbness, Denies weakness Psychiatric: Denies anxiety, Denies depression Endocrine: Denies fatigue, Denies weight change Past Medical History Past Medical History: Musculoskeletal Disorder, Thyroid Disorder Additional Past Medical History / Comment(s): Hypothyroid. Chronic digestive problems, POSS IBS, CHRONIC CONSTIPATION; 10 herniated discs. Chronic back problems & cervical cord compression per pt. History of Any Multi-Drug Resistant Organisms: None Reported Past Surgical History: Uterine Ablation Additional Past Surgical History / Comment(s): LT LEG Vein stripping; colonoscopy 2016; EPIDURAL pain procedures, D&C Past Anesthesia/Blood Transfusion Reactions: Motion Sickness, Postoperative Nausea & Vomiting (PONV) Smoking Status: Current every day smoker - Past Family History Mother Family Medical History: Cancer, Diabetes Mellitus, Myocardial Infarction ([place]) Medications and Allergies Home Medications Medication Instructions Recorded Confirmed Type Levothyroxine Sodium [Synthroid] 75 mcg PO QAM 12/13/14 09/19/20 History Citalopram Hydrobromide [CeleXA] 40 mg PO QAM 06/25/19 09/19/20 History Naproxen Sodium [Aleve] 440 mg PO DAILY 06/25/19 09/19/20 History Pregabalin [Lyrica] 400 - 500 mg PO BID 06/25/19 09/19/20 History Ascorbic Acid [Vitamin C] 1,000 mg PO DAILY 09/19/20 09/19/20 History Vitamin B Complex 1 each PO DAILY 09/19/20 09/19/20 History Vitamin E 400 unit PO DAILY 09/19/20 09/19/20 History Cetirizine HCl/Pseudoephedrine 1 tab PO DAILY 09/26/20 09/26/20 History [Zyrtec-D Tablet] Allergies Allergy/AdvReac Type Severity Reaction Status Date / Time Penicillins Allergy Rash/Hives Verified 09/26/20 06:05 Sulfa (Sulfonamide Allergy Rash/Hives Verified 09/26/20 06:05 Antibiotics) Exam Osteopathic Statement: *. No significant issues noted on an osteopathic structural exam other than those noted in the History and Physical/Consult. Vital Signs Temp Pulse Resp BP Pulse Ox 09/26/20 06:07 98.3 F 77 16 110/72 99 Intake and Output 09/25/20 09/25/20 09/26/20 14:59 22:59 06:59 Other: Weight 81.6 kg HEart: RRR Lungs: CTAB Abdomen: soft, nontender Extremeties: neg sonido's Assessment and Plan (1) Menorrhagia Current Visit: Yes Status: Acute Code(s): N92.0 - EXCESSIVE AND FREQUENT MENSTRUATION WITH REGULAR CYCLE SNOMED Code(s): 444224683 (2) Fibroid uterus Current Visit: Yes Status: Acute Code(s): D25.9 - LEIOMYOMA OF UTERUS, UNSPECIFIED SNOMED Code(s): 57889262 Plan: 1. total laparoscopic hysterectomy with da stevan and diagnostic cystoscopy, possible JONAH BSO
[2020-09-26] MEDS ORDERED: MIDAZOLAM 2 MG/2 ML VIAL IV ONE (07:06)
[2020-09-26] MEDS ORDERED: NEOSTIGMINE 1 MG/ML 10 ML VIAL ONE (07:17)
[2020-09-26] MEDS ORDERED: PROPOFOL 10 MG/ML 20 ML VIAL IV ONE (07:17)
[2020-09-26] MEDS ORDERED: SUCCINYLCHOLINE CHLORIDE 100 MG/5 ML SYR IV ONE (07:17)
[2020-09-26] MEDS ORDERED: GLYCOPYRROLATE 0.2 MG/ML 2 ML VIAL ONE (07:17)
[2020-09-26] MEDS ORDERED: LIDOCAINE 1%-EPI 1:100,000 20 ML VIAL ONE (07:17)
[2020-09-26] MEDS ORDERED: ROCURONIUM 10 MG/ML (5 ML VIAL) IV ONE (07:17)
[2020-09-26] MEDS ORDERED: fentaNYL (PF) 50 MCG/ML 2 ML AMP ONE (07:17)
[2020-09-26] MEDS ORDERED: ROPIVACAINE 5 MG/ML 30 ML VIAL ONE (07:17)
[2020-09-26] MEDS ORDERED: LIDOCAINE 1% INJ 10MG/ML (20 ML MDV) ONE (07:17)
[2020-09-26] MEDS ORDERED: BUPIVACAINE (PF) 0.25% 30 ML VIAL SQ ONE ×2 (07:39)
[2020-09-26] MEDS ORDERED: LACTATED RINGERS 1,000 ML IV ONE (08:30)
--- NOTE | 2020-09-26 08:48 | P.OP ---
Date of Procedure: 09/26/20 Preoperative Diagnosis: 1. menorrhagia 2. fibroid uterus Postoperative Diagnosis: same Procedure(s) Performed: Total laparoscopic hysterectomy bilateral salpingectomy with da june, diagnostic cystoscopy Anesthesia: SUMAN Surgeon: Marcy Gregorio Buffing Wheel Presser #1: Darren Godoy Estimated Blood Loss (ml): 20 IV fluids (ml): 800 Urine output (ml): 300 Pathology: other (uterus, cervix, bilateral fallopian tubes) Condition: stable Disposition: PACU Operative Findings: enlarged uterus, sounded to 12 cm. normal tubes and ovaries Description of Procedure: Patient taken the operating room where general anesthesia was obtained without difficulty. She is prepped and draped in normal sterile fashion dorsal lithotomy position, legs placed in the Michele stirrups. Weighted speculum placed in the vagina and the anterior lip the cervix was grasped with single-tooth tenaculum. The uterus sounded to 12 cm and the cervix diameter was 3.5 cm. The appropriate manipulator tip and ring were placed on the Mariah manipulator. The Mariah manipulator was then placed in the uterus. Cano catheter was also placed. Attention was then turned to the abdomen and gloves were changed. A 5 mm supraumbilical incision was made the scalpel and a 5 mm optical trocar was placed under direct visualization. 10 cm to the right of this and 2 cm down a 5 mm incision was made and 8 mm da June port was placed under direct visualization. Same measurements on the opposite side of the patient's abdomen, the 5 mm incision was made and 8 mm da June port was placed under direct visualization. In the left upper quadrant a 10 mm incision was made and a 10 mm optical trocar was placed under direct visualization. The 5 mm optical trocar was then replaced with the 8 mm da June camera port. The robot was docked on patient's right side. The camera was introduced and then the monopolar curved scissor and [place] bipolar placed under direct visualization. I broke scrub and went to the physician console. The left mesosalpinx was cauterized with the [place] bipolar and cut with monopolar curved scissors. The left utero-ovarian ligament and round ligament were cauterized with the [place] bipolar and cut with monopolar curved scissors. The posterior leaf of the broad ligament was taken down using the monopolar curved scissors. Anterior leaf of the broad ligament was then taken down using the monopolar curved scissors. The uterine artery was cauterized with the [place] bipolar and cut with monopolar curved scissors. The bladder flap was then started using the monopolar curved scissor s. Attention was then turned to the right side of the patient's anatomy and the right mesosalpinx was cauterized with the [place] bipolar and cut with monopolar curved scissors. The right utero-ovarian and round ligament were cauterized with the [place] bipolar and cut with monopolar curved scissors. Posterior leaf of the broad ligament was taken down using the monopolar curved scissors and the anterior leaf was taken down using the monopolar curved scissors. The uterine artery was cauterized the [place] bipolar cut with monopolar curved scissors. The bladder flap was then finished on this side. Anterior colpotomy was made using the monopolar curved scissors. The rest of the uterus was from the vaginal cuff by following the ring around with the monopolar curved scissors through the uterosacral ligaments back to the anterior portion. Once the uterus and cervix were amputated they were pulled through the vaginal cuff. Hemostasis was assured. The instruments were changed for the Cardier forcep and the maddie suture cut. The vaginal cuff was then closed using 2-O stratafix barbed suture in a running fashion. Hemostasis was again assured and the pelvis was irrigated. All instruments were removed from the abdomen and the robot was undocked. I scrubbed back in to perform a cystoscopy. There were jets from both ureteral orifices. The abdominal incisions were closed with 4-0 Vicryl in a subcuticular fashion. Patient tolerated the procedure well, sponge and instrument counts correct 2 and she was taken to recovery room in stable condition condition
[2020-09-26] MEDS ORDERED: SIMETHICONE 80 MG CHEWABLE PO PRN (08:55)
[2020-09-26] MEDS ORDERED: ONDANSETRON 4 MG/2 ML VIAL IVP PRN (08:55)
[2020-09-26] MEDS ORDERED: ZOLPIDEM 5 MG TAB PO PRN (08:55)
[2020-09-26] MEDS ORDERED: IBUPROFEN 600 MG TAB PO PRN (08:55)
[2020-09-26] MEDS ORDERED: Acetaminophen-Codeine 300-30mg TAB PO PRN (08:55)
[2020-09-26] MEDS: KETOROLAC 15 MG/ML 1 ML VIAL IVP PRN ×2 (08:59→15:03)
[2020-09-26] MEDS: HYDROmorphone 0.5 MG/0.5 ML SYRINGE IVP PRN ×2 (09:02→09:05)
[2020-09-26] MEDS: CITALOPRAM HYDROBROMIDE 20 MG TAB PO SCH (10:22)
[2020-09-26] MEDS: LEVOTHYROXINE 75 MCG TAB PO SCH (10:22)
[2020-09-26] MEDS: LORATADINE-PSEUDOEPH 5-120 MG 1 EACH TAB.ER.12H PO SCH (10:23)
[2020-09-26] MEDS: PREGABALIN 100 MG CAP PO SCH ×2 (10:24→20:27)
[2020-09-26] MEDS: SENNOSIDES-DOCUSATE SODIUM 1 EACH TAB PO SCH ×2 (10:24→23:29)
--- NOTE | 2020-09-26 11:32 | P.ANPRN ---
Procedure Note - Anesthesia - Nerve Block Performed Bilateral Erector Spinae Single Time Out Performed: Yes Date of Procedure: 09/26/20 Procedure Start Time: 07:05 Procedure Stop Time: 07:16 Location of Patient: PreOp Indication: Acute Post-Operative Pain, Requested by Surgeon Sedation Type: Sedate with meaningful contact maintained Preparation: Sterile Prep Position: Prone Needle Types: Pajunk Needle Gauge: 21 Ultrasound used to visualize needle placement: Yes Ultrasound used to observe medication spread: Yes Blood Aspirated: No Pain Paresthesia on Injection Noted: No Resistance on Injection: Normal Image Stored and Saved: Yes Events: Uneventful and Well Tolerated (ropi .5% 15 cc plus xylo 1% with epi 10cc at l3 bilaterally)
[2020-09-26] MEDS: Acetaminophen-Codeine 300-30mg TAB PO PRN ×2 (13:36→20:10)
[2020-09-27] MEDS: Acetaminophen-Codeine 300-30mg TAB PO PRN (05:09)
[2020-09-27 08:34] LABS: Basophils % (A) 1 %; Eosinophils # (A) 0.1 k/uL (0-0.7); Eosinophils % (A) 1 %; HCT 32.5 % (34.0-46.0); Lymphocytes # (A) 2.1 k/uL (1.0-4.8); Lymphocytes % (A) 34 %; MCH 29.8 pg (25.0-35.0); MCV 87.7 fL (80.0-100.0); Mean Platelet Volume 9.4; Monocytes # (A) 0.4 k/uL (0-1.0); Monocytes % (A) 7 %; Neutrophils # (A) 3.4 k/uL (1.3-7.7); Neutrophils % (A) 55 %; Platelet Count 207 k/uL (150-450); RBC 3.71 m/uL (3.80-5.40); RDW 15.9 % (11.5-15.5); WBC 6.1 k/uL (3.8-10.6)
[2020-09-27] MEDS: CITALOPRAM HYDROBROMIDE 20 MG TAB PO SCH (08:38)
[2020-09-27] MEDS: LEVOTHYROXINE 75 MCG TAB PO SCH (08:38)
[2020-09-27] MEDS: PREGABALIN 100 MG CAP PO SCH (08:38)
[2020-09-27 08:44] VITALS: BP 86/47; PULSE 87; RESP 14; TEMP 97.7
--- NOTE | 2020-09-27 08:49 | P.DS ---
Providers Expected date of discharge: 09/27/20 Attending physician: Marcy Gregorio Primary care physician: Paul Castañeda - Discharge Diagnosis(es) (1) Menorrhagia Current Visit: Yes Status: Resolved (2) Fibroid uterus Current Visit: Yes Status: Resolved (3) History of robot-assisted laparoscopic hysterectomy Current Visit: Yes Status: Acute Hospital Course: Patient presented for TLH with da June. She underwent TLH BS with da June diagnosis cystoscopy. Postoperatively her course was Located. She is voiding and ambulating without difficulty. She is well-controlled. Denies nausea, vomiting, chest pain, shortness of breath or calf pain. Patient will be discharged home postoperative day #1 in stable condition to follow-up with me in 3 weeks. Plan - Discharge Summary Discharge Rx Participant: Yes New Discharge Prescriptions: New Ibuprofen [Motrin] 600 mg PO Q6HR PRN #40 tab PRN Reason: Mild Discomfort Acetaminophen-Codeine 300-30mg [Tylenol w/codeine #3] 1 - 2 each PO Q6HR PRN #24 tab PRN Reason: Severe Pain No Action Levothyroxine Sodium [Synthroid] 75 mcg PO QAM Pregabalin [Lyrica] 400 - 500 mg PO BID Naproxen Sodium [Aleve] 440 mg PO DAILY Citalopram Hydrobromide [CeleXA] 40 mg PO QAM Vitamin B Complex 1 each PO DAILY Ascorbic Acid [Vitamin C] 1,000 mg PO DAILY Vitamin E 400 unit PO DAILY Cetirizine HCl/Pseudoephedrine [Zyrtec-D Tablet] 1 tab PO DAILY Discharge Medication List Levothyroxine Sodium [Synthroid] 75 mcg PO QAM 12/13/14 [History] Citalopram Hydrobromide [CeleXA] 40 mg PO QAM 06/25/19 [History] Naproxen Sodium [Aleve] 440 mg PO DAILY 06/25/19 [History] Pregabalin [Lyrica] 400 - 500 mg PO BID 06/25/19 [History] Ascorbic Acid [Vitamin C] 1,000 mg PO DAILY 09/19/20 [History] Vitamin B Complex 1 each PO DAILY 09/19/20 [History] Vitamin E 400 unit PO DAILY 09/19/20 [History] Cetirizine HCl/Pseudoephedrine [Zyrtec-D Tablet] 1 tab PO DAILY 09/26/20 [History] Acetaminophen-Codeine 300-30mg [Tylenol w/codeine #3] 1 - 2 each PO Q6HR PRN #24 tab 09/27/20 [Rx] Ibuprofen [Motrin] 600 mg PO Q6HR PRN #40 tab 09/27/20 [Rx] Follow up Appointment(s)/Referral(s): Marcy Gregorio DO [Doctor of Osteopathic Medicine] - 3 Weeks Patient Instructions/Handouts: *Surgery [facility] - Scopalamine Patch Instructions Discharge Disposition: HOME SELF-CARE
[2020-09-27] MEDS: SENNOSIDES-DOCUSATE SODIUM 1 EACH TAB PO SCH (11:09)
[2020-09-27] MEDS: LORATADINE-PSEUDOEPH 5-120 MG 1 EACH TAB.ER.12H PO SCH (11:09)
== END 2020-09-27 10:15 | disposition home or self-care (01) ==
LOC: OR 05:26 → 4FBP 08:33 → OR 09-27 10:15
PROVIDERS: ATTEND Obstetrics & Gynecology
DX: N92.0 Excessive and frequent menstruation with regular cycle (principal); D25.1 Intramural leiomyoma of uterus; K59.09 Other constipation; E03.9 Hypothyroidism, unspecified; G95.29 Other cord compression; Z79.899 Other long term (current) drug therapy; F17.210 Nicotine dependence, cigarettes, uncomplicated; Z88.0 Allergy status to penicillin; Z88.2 Allergy status to sulfonamides
CPT/HCPCS: 58573; S2900; 64999; 76942; 81025; 85025; 86850; 86900; 86901; 88307

== ENCOUNTER → 2020-10-21 | Outpatient (CLI) | payer OTHER ==
--- NOTE | 2020-10-21 15:24 | XR ---
EXAMINATION TYPE: XR abdomen acute w cxr DATE OF EXAM: 10/21/2020 COMPARISON: CT abdomen and pelvis 06/29/2016 HISTORY: Painful lump in the center of sternum TECHNIQUE: Supine, upright, and left side down lateral decubitus views of the abdomen are obtained. FINDINGS: Heart size is within normal limits. Trachea is midline. No focal consolidation, pneumothorax or pleur al effusion. Upright view shows no free air. Nonspecific, nonobstructive bowel gas pattern. Large abbey unt of stool and gas are seen scattered throughout the colon. Presumed right pelvic phleboliths. Mild degenerative changes of the lower lumbar spine and hips. IMPRESSION: 1. No acute pulmonary disease. 2. Nonspecific, nonobstructive bowel gas pattern. Large amount of stool and gas throughout the colon may represent constipation.
== END | disposition home or self-care (01) ==
LOC: RADXRMAIN 14:18
PROVIDERS: ATTEND Nurse Practitioner
DX: R22.2 Localized swelling, mass and lump, trunk (principal)
CPT/HCPCS: 74022

== ENCOUNTER → 2020-11-01 | Outpatient (CLI) | payer OTHER ==
--- NOTE | 2020-11-02 14:17 | MM ---
Reason for exam: screening (asymptomatic). Last mammogram was performed 1 year and 6 months ago. History: Took hormonal contraceptives for 15 years. Physical Findings: A clinical breast exam by your physician is recommended on an annual basis and results should be correlated with mammographic findings. MG Screening Mammo w CAD Bilateral CC and MLO view(s) were taken. Prior study comparison: April 20, 2019, bilateral MG screening mammo w CAD. December 10, 2017, bilateral MG screening mammo w CAD. The breast tissue is heterogeneously dense. This may lower the sensitivity of mammography. No significant changes when compared with prior studies. ASSESSMENT: Benign, BI-RAD 2 RECOMMENDATION: Routine screening mammogram of both breasts in 1 year.
== END | disposition home or self-care (01) ==
LOC: RADMAMWWP 16:24
PROVIDERS: ATTEND Obstetrics & Gynecology
DX: Z12.31 Encounter for screening mammogram for malignant neoplasm of breast (principal)
CPT/HCPCS: 77067

== ENCOUNTER 2021-02-01 10:59 | Emergency (ER) | payer OTHER ==
[2021-02-01 11:04] VITALS: TEMP 98.1
[2021-02-01] MEDS ORDERED: SODIUM CHLORIDE 0.9% 1,000 ML IV STA (11:17)
[2021-02-01] MEDS ORDERED: KETOROLAC 15 MG/ML 1 ML VIAL IVP STA (11:17)
[2021-02-01] MEDS ORDERED: SODIUM CHLORIDE 0.9% 500 ML 500 ML IV STA (11:17)
[2021-02-01 11:46] LABS: Basophils % (A) 1 %; Eosinophils # (A) 0.2 k/uL (0-0.7); Eosinophils % (A) 3 %; HCT 39.5 % (34.0-46.0); HGB 13.6 gm/dL (11.4-16.0); Lymphocytes # (A) 1.8 k/uL (1.0-4.8); Lymphocytes % (A) 32 %; MCH 31.3 pg (25.0-35.0); MCHC 34.5 g/dL (31.0-37.0); MCV 90.7 fL (80.0-100.0); Mean Platelet Volume 9.2; Monocytes # (A) 0.4 k/uL (0-1.0); Monocytes % (A) 8 %; Neutrophils % (A) 53 %; Platelet Count 240 k/uL (150-450); RBC 4.35 m/uL (3.80-5.40); RDW 13.9 % (11.5-15.5); WBC 5.6 k/uL (3.8-10.6)
[2021-02-01 11:47] LABS: Appearance,Urine Clear (Clear); Bilirubin,Urine Negative (Negative); Blood,Urine Negative (Negative); Color,Urine Light Yellow; Glucose,Urine (UA) Negative (Negative); Ketones,Urine Negative (Negative); Leukocyte Esterase,Urine Negative (Negative); Nitrite,Urine Negative (Negative); Protein,Urine Negative (Negative); Specific Gravity,Urine 1.004 (1.001-1.035); Urobilinogen,Urine <2.0 mg/dL (<2.0)
[2021-02-01 12:00] LABS: ALT 13 U/L (4-34); AST 21 U/L (14-36); African American GFR (CKD) >90 (>60 ml/min/1.73 sqM); Albumin 4.2 g/dL (3.5-5.0); Alkaline Phosphatase 56 U/L (38-126); Amylase 57 U/L (30-110); Anion Gap 7 mmol/L; Blood Urea Nitrogen 9 mg/dL (7-17); Carbon Dioxide 23 mmol/L (22-30); Chloride 108 mmol/L (98-107); Glucose 91 mg/dL (74-99); Lipase 122 U/L (23-300); Non-African American GFR(CKD) >90 (>60 ml/min/1.73 sqM); Potassium 3.9 mmol/L (3.5-5.1); Sodium 138 mmol/L (137-145); Total Bilirubin 0.3 mg/dL (0.2-1.3); Total Protein 6.7 g/dL (6.3-8.2)
--- NOTE | 2021-02-01 12:02 | ED ---
Abdominal Pain HPI - General Chief Complaint: Abdominal Pain Stated Complaint: lt sided pain Time Seen by Provider: 02/01/21 11:05 Source: patient, RN notes reviewed Mode of arrival: ambulatory Limitations: no limitations - History of Present Illness Initial Comments: This a 50-year-old female presents emergency Department chief complaint of abdominal pain, flank pain. Patient states she has chronic constipation issues. Patient states she's been on multiple medications states pain is different states it severe flank pain mild radiation no chest pain or shortness of breath states it's worse with movement and if you press over there. 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 - Related Data Home Medications Medication Instructions Recorded Confirmed Levothyroxine Sodium [Synthroid] 75 mcg PO QAM 12/13/14 02/01/21 Citalopram Hydrobromide [CeleXA] 40 mg PO QAM 06/25/19 02/01/21 Naproxen Sodium [Aleve] 440 mg PO DAILY 06/25/19 02/01/21 Ascorbic Acid [Vitamin C] 1,000 mg PO DAILY 09/19/20 02/01/21 Vitamin B Complex 1 cap PO DAILY 09/19/20 02/01/21 Vitamin E 400 unit PO DAILY 09/19/20 02/01/21 Pregabalin 100 mg PO QID 02/01/21 02/01/21 Allergies Allergy/AdvReac Type Severity Reaction Status Date / Time Penicillins Allergy Rash/Hives Verified 02/01/21 11:19 Sulfa (Sulfonamide Allergy Rash/Hives Verified 02/01/21 11:19 Antibiotics) Review of Systems ROS Statement: Those systems with pertinent positive or pertinent negative responses have been documented in the HPI. ROS Other: All systems not noted in ROS Statement are negative. Past Medical History Past Medical History: Musculoskeletal Disorder, Thyroid Disorder Additional Past Medical History / Comment(s): Hypothyroid. Chronic digestive problems, POSS IBS, CHRONIC CONSTIPATION; 10 herniated discs. Chronic back problems & cervical cord compression per pt. History of Any Multi-Drug Resistant Organisms: None Reported Past Surgical History: Hysterectomy, Uterine Ablation Additional Past Surgical History / Comment(s): LT LEG Vein stripping; colonoscopy 2017; EPIDURAL pain procedures, D&C Past Anesthesia/Blood Transfusion Reactions: Motion Sickness, Postoperative Nausea & Vomiting (PONV) Past Psychological History: Anxiety, Depression Smoking Status: Current every day smoker Past Alcohol Use History: Occasional Past Drug Use History: Marijuana - Past Family History Mother Family Medical History: Cancer, Diabetes Mellitus, Myocardial Infarction ([place]) General Exam Limitations: no limitations General appearance: alert, in no apparent distress Head exam: Present: atraumatic, normocephalic, normal inspection Neck exam: Present: normal inspection, full ROM. Absent: tenderness, meningismus, lymphadenopathy Respiratory exam: Present: normal lung sounds bilaterally. Absent: respiratory distress, wheezes, rales, rhonchi, stridor Cardiovascular Exam: Present: regular rate, normal rhythm, normal heart sounds. Absent: systolic murmur, diastolic murmur, rubs, gallop, clicks GI/Abdominal exam: Present: soft, normal bowel sounds. Absent: distended, tenderness, guarding, rebound, rigid Back exam: Present: CVA tenderness (L). Absent: CVA tenderness (R) Neurological exam: Present: alert Psychiatric exam: Present: normal affect, normal mood Skin exam: Present: warm, dry, intact, normal color. Absent: rash Course Vital Signs 02/01/21 02/01/21 11:00 12:28 Temperature 98.1 F Pulse Rate 76 71 Respiratory 18 16 Rate Blood Pressure 123/72 132/88 O2 Sat by Pulse 99 91 L Oximetry Medical Decision Making - Medical Decision Making 50-year-old female presented for left-sided abdominal pain CT shows evidence of colonic thickening fecal stasis. Patient has chronic constipation issues. Patient will be given medications for constipation advised to follow-up with GI or surgery for colonoscopy and return for any worsening change in symptoms. - Lab Data Result diagrams: 02/01/21 11:30 02/01/21 11:30 Lab Results 02/01/21 02/01/21 02/01/21 Range/Units 11:30 11:30 11:30 WBC 5.6 (3.8-10.6) k/uL RBC 4.35 (3.80-5.40) m/uL Hgb 13.6 (11.4-16.0) gm/dL Hct 39.5 (34.0-46.0) % MCV 90.7 (80.0-100.0) fL MCH 31.3 (25.0-35.0) pg MCHC 34.5 (31.0-37.0) g/dL RDW 13.9 (11.5-15.5) % Plt Count 240 (150-450) k/uL MPV 9.2 Neutrophils % 53 % Lymphocytes % 32 % Monocytes % 8 % Eosinophils % 3 % Basophils % 1 % Neutrophils # 3.0 (1.3-7.7) k/uL Lymphocytes # 1.8 (1.0-4.8) k/uL Monocytes # 0.4 (0-1.0) k/uL Eosinophils # 0.2 (0-0.7) k/uL Basophils # 0.0 (0-0.2) k/uL Sodium 138 (137-145) mmol/L Potassium 3.9 (3.5-5.1) mmol/L Chloride 108 H (98-107) mmol/L Carbon Dioxide 23 (22-30) mmol/L Anion Gap 7 mmol/L BUN 9 (7-17) mg/dL Creatinine 0.58 (0.52-1.04) mg/dL Est GFR (CKD-EPI)AfAm >90 (>60 ml/min/1.73 sqM) Est GFR (CKD-EPI)NonAf >90 (>60 ml/min/1.73 sqM) Glucose 91 (74-99) mg/dL Plasma Lactic Acid Basil (0.7-2.0) mmol/L Calcium 9.0 (8.4-10.2) mg/dL Total Bilirubin 0.3 (0.2-1.3) mg/dL AST 21 (14-36) U/L ALT 13 (4-34) U/L Alkaline Phosphatase 56 (38-126) U/L Total Protein 6.7 (6.3-8.2) g/dL Albumin 4.2 (3.5-5.0) g/dL Amylase 57 (30-110) U/L Lipase 122 (23-300) U/L Urine Color Light Yellow Urine Appearance Clear (Clear) Urine pH 6.0 (5.0-8.0) Ur Specific [place] 1.004 (1.001-1.035) Urine Protein Negative (Negative) Urine Glucose (UA) Negative (Negative) Urine Ketones Negative (Negative) Urine Blood Negative (Negative) Urine Nitrite Negative (Negative) Urine Bilirubin Negative (Negative) Urine Urobilinogen <2.0 (<2.0) mg/dL Ur Leukocyte Esterase Negative (Negative) 02/01/21 Range/Units 11:30 WBC (3.8-10.6) k/uL RBC (3.80-5.40) m/uL Hgb (11.4-16.0) gm/dL Hct (34.0-46.0) % MCV (80.0-100.0) fL MCH (25.0-35.0) pg MCHC (31.0-37.0) g/dL RDW (11.5-15.5) % Plt Count (150-450) k/uL MPV Neutrophils % % Lymphocytes % % Monocytes % % Eosinophils % % Basophils % % Neutrophils # (1.3-7.7) k/uL Lymphocytes # (1.0-4.8) k/uL Monocytes # (0-1.0) k/uL Eosinophils # (0-0.7) k/uL Basophils # (0-0.2) k/uL Sodium (137-145) mmol/L Potassium (3.5-5.1) mmol/L Chloride (98-107) mmol/L Carbon Dioxide (22-30) mmol/L Anion Gap mmol/L BUN (7-17) mg/dL Creatinine (0.52-1.04) mg/dL Est GFR (CKD-EPI)AfAm (>60 ml/min/1.73 sqM) Est GFR (CKD-EPI)NonAf (>60 ml/min/1.73 sqM) Glucose (74-99) mg/dL Plasma Lactic Acid Basil 0.7 (0.7-2.0) mmol/L Calcium (8.4-10.2) mg/dL Total Bilirubin (0.2-1.3) mg/dL AST (14-36) U/L ALT (4-34) U/L Alkaline Phosphatase (38-126) U/L Total Protein (6.3-8.2) g/dL Albumin (3.5-5.0) g/dL Amylase (30-110) U/L Lipase (23-300) U/L Urine Color Urine Appearance (Clear) Urine pH (5.0-8.0) Ur Specific [place] (1.001-1.035) Urine Protein (Negative) Urine Glucose (UA) (Negative) Urine Ketones (Negative) Urine Blood (Negative) Urine Nitrite (Negative) Urine Bilirubin (Negative) Urine Urobilinogen (<2.0) mg/dL Ur Leukocyte Esterase (Negative) Disposition Clinical Impression: Constipation, Abdominal pain Disposition: HOME SELF-CARE Condition: Stable Instructions (If sedation given, give patient instructions): Abdominal Pain (ED) Additional Instructions: Please return to the Emergency Department if symptoms worsen or any other concerns. Is patient prescribed a controlled substance at d/c from ED?: No Referrals: Paul Castañeda MD [Primary Care Provider] - 1-2 days Jazmin Nova MD [STAFF PHYSICIAN] - 1-2 days Teodora Salazar MD [STAFF PHYSICIAN] - 1-2 days Time of Disposition: 13:01
[2021-02-01 12:30] VITALS: BP 132/88; PULSE 71; RESP 16
--- NOTE | 2021-02-01 12:51 | CT ---
EXAMINATION TYPE: CT abdomen pelvis w con DATE OF EXAM: 02/01/2021 COMPARISON: CT 06/29/2016 HISTORY: Left upper quadrant pain, constipation CT DLP: 1070.8 mGycm Automated exposure control for dose reduction was used. TECHNIQUE: Helical acquisition of images from the lung bases through the pelvis have been completed. CONTRAST: Performed without Oral Contrast and with IV Contrast, patient injected with 100 mL of Isovue 300. FINDINGS: LUNG BASES: There is some patchy dependent atelectatic change.. AORTA: No significant abnormality is appreciated. LIVER/GB: No significant interval change is appreciated. PANCREAS: No significant abnormality is seen. SPLEEN: No significant abnormality is seen. ADRENALS: No significant abnormality is seen. KIDNEYS: No significant abnormality is seen. REPRODUCTIVE ORGANS: Not seen, interval hysterectomy, and heterogeneous focus along the external wellington c vasculature on the left may be related to ovarian and adnexal remnant, correlate with appropriate h istory. Heterogeneous lesion measures 2.6 x 4.2 x 8.1 cm. Axial image #62 in the left iliac fossa reg ion BOWEL: Retained fecal debris is present throughout the distribution of the colon. Focal colonic thic kening in left upper quadrant, descending colon is indeterminate, coronal image 39, axial image 37. N o evident appendicitis. FREE AIR: No Free Air visible. ASCITES: None visible. PELVIC ADENOPATHY: None visualized. RETROPERITONEAL ADENOPATHY: No Retroperitoneal Adenopathy visible. URINARY BLADDER: No significant abnormality is seen. OSSEOUS STRUCTURES: There is a spinal curvature. Degenerative disc changes, facet arthropathy noted at the lower lumbar spine. IMPRESSION: NONSPECIFIC COLONIC WALL THICKENING, CONSIDER FECAL STASIS, BOWEL SURVEILLANCE IF THIS IS NOT BEEN PE RFORMED, DIFFICULT TO EXCLUDE A MUCOSAL LESION, NO ORAL CONTRAST ADMINISTERED. HETEROGENEOUS LESION A LONG THE EXTERNAL ILIAC VASCULATURE ON THE LEFT MAY REPRESENT OVARY, THERE IS A HETEROGENEOUS APPEARA NCE, FOLLOW-UP TO ASSESS FOR STABILITY ADDITIONAL FINDINGS ABOVE.
== END 2021-02-01 13:51 | disposition home or self-care (01) ==
LOC: EC 10:59
DX: K59.00 Constipation, unspecified (principal); F17.200 Nicotine dependence, unspecified, uncomplicated; Z79.890 Hormone replacement therapy; Z88.0 Allergy status to penicillin; Z88.2 Allergy status to sulfonamides
CPT/HCPCS: 36415; 80053; 82150; 83605; 83690; 85025; 81003; 74177; 99284; 96374; 96361; J1885; Q9967

== ENCOUNTER 2021-02-25 10:47 | Emergency (ER) | payer OTHER ==
[2021-02-25 10:53] VITALS: BP 126/84; PULSE 90; RESP 18; TEMP 97.9
[2021-02-25] MEDS ORDERED: ONDANSETRON ODT 4 MG TAB PO STA (11:23)
--- NOTE | 2021-02-25 11:31 | ED ---
General Adult HPI - General Chief complaint: Extremity Injury, Lower Stated complaint: L leg pain Time Seen by Provider: 02/25/21 10:55 Source: patient, RN notes reviewed Mode of arrival: ambulatory Limitations: no limitations - History of Present Illness Initial comments: 50-year-old female presents to the emergency department independently with jordy rns for a blood clot in the left lower leg. Patient states her left calf is throbbing and she has been having charley horses at night for the past few months. She states she became concerned when she noticed bruising around her left ankle last night. Patient denies any injury, trauma, travel, or prolonged sitting. States pain worsens with palpation and is mildly worse with ambulation. Patient denies shortness of breath or tightness in her chest. - Related Data Home Medications Medication Instructions Recorded Confirmed Levothyroxine Sodium [Synthroid] 75 mcg PO DAILY 12/13/14 02/25/21 Citalopram Hydrobromide [CeleXA] 40 mg PO DAILY 06/25/19 02/25/21 Naproxen Sodium [Aleve] 440 mg PO DAILY 06/25/19 02/25/21 Ascorbic Acid [Vitamin C] 1,000 mg PO DAILY 09/19/20 02/25/21 Vitamin B Complex 1 cap PO DAILY 09/19/20 02/25/21 Vitamin E 400 unit PO DAILY 09/19/20 02/25/21 Pregabalin 100 mg PO QID 02/01/21 02/25/21 Baclofen 5 mg PO DAILY PRN 02/25/21 02/25/21 Lubiprostone [Amitiza] 24 mcg PO DAILY 02/25/21 02/25/21 Metoclopramide [Reglan] 10 mg PO QID PRN 02/25/21 02/25/21 Allergies Allergy/AdvReac Type Severity Reaction Status Date / Time Penicillins Allergy Rash/Hives Verified 02/25/21 12:24 Sulfa (Sulfonamide Allergy Rash/Hives Verified 02/25/21 12:24 Antibiotics) Review of Systems ROS Statement: Those systems with pertinent positive or pertinent negative responses have been documented in the HPI. ROS Other: All systems not noted in ROS Statement are negative. Past Medical History Past Medical History: Musculoskeletal Disorder, Thyroid Disorder Additional Past Medical History / Comment(s): Hypothyroid. Chronic digestive problems, POSS IBS, CHRONIC CONSTIPATION; 10 herniated discs. Chronic back problems & cervical cord compression per pt. History of Any Multi-Drug Resistant Organisms: None Reported Past Surgical History: Hysterectomy, Uterine Ablation Additional Past Surgical History / Comment(s): LT LEG Vein stripping; colonoscopy 2017; EPIDURAL pain procedures, D&C Past Anesthesia/Blood Transfusion Reactions: Motion Sickness, Postoperative Nausea & Vomiting (PONV) Past Psychological History: Anxiety, Depression Smoking Status: Current every day smoker Past Alcohol Use History: Occasional Past Drug Use History: Marijuana - Past Family History Mother Family Medical History: Cancer, Diabetes Mellitus, Myocardial Infarction ([place]) General Exam Limitations: no limitations General appearance: alert, in no apparent distress Respiratory exam: Present: normal lung sounds bilaterally, rales. Absent: respiratory distress, wheezes Cardiovascular Exam: Present: regular rate, normal rhythm, normal heart sounds Left Upper Leg exam: Present: normal inspection Knee exam: Present: normal inspection, full ROM. Absent: tenderness, swelling Lower Leg exam: Present: normal inspection, tenderness. Absent: swelling, erythema, Homans' sign Ankle exam: Present: tenderness, swelling, ecchymosis (Left medial ankle tenderness around the area of atraumatic ecchymosis) Foot/Toe exam: Present: normal inspection, full ROM. Absent: tenderness Neurovascular tendon exam: Present: no vascular compromise. Absent: pulse deficit, abnormal cap refill Right Upper Leg exam: Present: normal inspection Knee exam: Present: normal inspection, full ROM. Absent: tenderness, swelling Lower Leg exam: Present: normal inspection, full ROM. Absent: tenderness, swelling, Homans' sign Ankle exam: Present: normal inspection, full ROM. Absent: tenderness, swelling Foot/Toe exam: Present: normal inspection, full ROM. Absent: tenderness, swelling Neurovascular tendon exam: Present: no vascular compromise. Absent: pulse deficit, abnormal cap refill Neurological exam: Present: alert, oriented X3 Psychiatric exam: Present: normal affect, normal mood Skin exam: Present: warm, dry, intact Course Vital Signs 02/25/21 10:50 Temperature 97.9 F Pulse Rate 90 Respiratory 18 Rate Blood Pressure 126/84 O2 Sat by Pulse 100 Oximetry Medical Decision Making - Medical Decision Making 50-year-old female presents to the emergency Department with complaints of left calf pain and is concerned about DVT after noticing a bruise on the medial aspect of her left ankle this morning. Patient denied any injury, trauma, or DVT. Patient's left calf is mildly tender upon palpation; +2 pedal and posttibial pulses; skin warm, pink, and dry bilaterally. Ultrasound of the left lower extremity was obtained to rule out DVT. Impression per Dr. Espana concludes no evidence for DVT at this time. DISCUSSED findings with patient, she verbalizes understanding. Instructed to follow up with primary care provider in the next 1-2 days for recheck if pain persists, and to return to the emergency department with any new, worsening, or concerning symptoms. Disposition Clinical Impression: Pain in left lower leg Disposition: HOME SELF-CARE Condition: Good Instructions (If sedation given, give patient instructions): Leg Pain (ED) Additional Instructions: Follow-up with primary care provider in the next 1-2 days if pain persists. Return to the emergency department with any new, worsening, or concerning symptoms. Is patient prescribed a controlled substance at d/c from ED?: No Referrals: Paul Castañeda MD [Primary Care Provider] - 1-2 days Time of Disposition: 12:40
--- NOTE | 2021-02-25 12:14 | US ---
EXAMINATION TYPE: US venous doppler duplex LE LT DATE OF EXAM: 02/25/2021 12:04 PM COMPARISON: NONE CLINICAL HISTORY: Left lower extremity pain, contusion. SIDE PERFORMED: Left TECHNIQUE: The lower extremity deep venous system is examined utilizing real time linear array sonog rosa elena with graded compression, doppler sonography and color-flow sonography. VESSELS IMAGED: Common Femoral Vein Deep Femoral Vein Greater Saphenous Vein * Femoral Vein Popliteal Vein Small Saphenous Vein * Proximal Calf Veins (* superficial vessels) Left Leg: Negative for DVT Patient's area of concern, left inside lower leg near ankle, was scanned. No abnormality appreciated. IMPRESSION: No evidence for DVT at this time.
== END 2021-02-25 13:10 | disposition home or self-care (01) ==
LOC: EC 10:47
DX: M79.662 Pain in left lower leg (principal); E03.9 Hypothyroidism, unspecified; F17.200 Nicotine dependence, unspecified, uncomplicated; Z88.0 Allergy status to penicillin; Z88.2 Allergy status to sulfonamides; Z79.890 Hormone replacement therapy
CPT/HCPCS: 99283

== ENCOUNTER → 2021-04-14 | Outpatient (CLI) | payer OTHER ==
--- NOTE | 2021-04-14 08:13 | MR ---
EXAMINATION TYPE: MR cspine/lspine wo con DATE OF EXAM: 04/14/2021 COMPARISON: MRI cervical and lumbar spine February 29, 2020 HISTORY: Degeneration of lumbar disc, Degeneration of cervical spine per order. Back pain for 15 year s radiating into both lower extremities with difficulty walking per patient. Headache and neck pain f or 15 years causing pain and weakness into both arms and fingers per patient. TECHNIQUE: Multiplanar, multisequence imaging of the cervical and lumbar spine are performed without IV contrast. FINDINGS: C-SPINE: FINDINGS: Sagittal images of the cervical spine show the craniocervical junction to remain within nor mal limits. The cervical and upper thoracic spinal cord remains normal in signal. Vertebral alignme nt is stable and satisfactory. The vertebral body and intravertebral disk heights remain normal. Th e bone marrow signal intensity remains within normal limits. Axial images show C2-C3, C3-C4, and C4-C5 levels all to appear within normal limits. Axial images at C5-C6 level redemonstrate focal central disc protrusion effacing anterior thecal sac causing flattening of the spinal cord along the ventral surface and AP diameter narrowing axial image 31, this is more prominent than prior study. Patent bilateral neural foramina. No abnormal focal sig nal at this level on sagittal images. Axial images at C6-C7 levels redemonstrate smaller central disc protrusion mildly effacing the anteri or thecal sac, patent bilateral neural foramina. No significant change from prior. Axial images at C7-T1 level remain within normal limits. IMPRESSION: Worsening disc herniation C5-C6 level with more prominent mass effect on the spinal cord. L-SPINE: Sagittal images of the lumbar spine show vertebral body heights to remain satisfactory. Subtle stable spondylolisthesis lower lumbar levels. Multilevel disc desiccation with mild disc space narrowing L3 -L4 and [id number] disc space narrowing L5-S1 levels. The conus medullaris is normal in positi on and signal ending mid L1 level. The bone marrow signal intensity remains within normal limits. Axial images show T12-L1, L1-L2, and L2-L3 levels all to appear within normal limits. Axial images at the L3-L4 level redemonstrate mild to moderate broad disc bulge mildly effacing the a nterior thecal sac and mild/moderate facet degenerative changes and ligamentum flavum hypertrophy eff acing the posterior lateral thecal sac. There is mild left and moderate right-sided neural foraminal narrowing at this level identified. Axial images at the L4-L5 level show moderate to advanced facet arthropathy and ligament flavum hyper trophy effacing the left posterolateral thecal sac. There is moderate broad-based posterior disc prot rusion effacing the anterior thecal sac. There is [id number] bilateral neural foraminal narrowi ng. No significant change from prior. Axial images at the L5-S1 level redemonstrate mild to moderate facet arthropathy bilaterally. There i s mild broad disc bulge minimally effacing the anterior thecal sac. There is moderate to severe left- sided neural foraminal narrowing. Encroachment on the left L5 nerve is seen sagittal image 5 similar to prior study sagittal image 5. Patent right-sided neural foramina. Paraspinal muscle bulk is preserved. IMPRESSION: Moderate multilevel degenerative changes in the mid to lower lumbar spine as detailed abo ve. No significant change or progression from most recent MRI.
== END | disposition home or self-care (01) ==
LOC: RADMRIMAIN 06:47
PROVIDERS: ATTEND Nurse Practitioner
DX: M47.816 Spondylosis without myelopathy or radiculopathy, lumbar region (principal)
CPT/HCPCS: 72141; 72148

== ENCOUNTER → 2021-11-07 | Outpatient (CLI) | payer OTHER ==
--- NOTE | 2021-11-08 09:39 | MM ---
Reason for Exam: Screening (asymptomatic). Last screening mammogram was performed 12 month(s) ago. Patient History: Menarche at age 13. First Full-Term at age 27. Patient used Hormonal Contraceptives for 15 years. Risk Values: Laurel 5 year model risk: 1.1%. NCI Lifetime model risk: 8.6%. Prior Study Comparison: 12/10/2017 Bilateral Screening Mammogram, [facility]. 04/20/2019 Bilateral Screening Mammogram, [facility]. 11/01/2020 Bilateral Screening Mammogram, [facility]. Tissue Density: The breast tissue is heterogeneously dense. This may lower the sensitivity of mammography. Findings: Analyzed By CAD. New asymmetric nodular density far posterior right MLO view above the level of the nipple and likely within the outer aspect of the right breast zone C. Additional views are recommended. No suspicious microcalcifications noted. Overall Assessment: Incomplete: need additional imaging evaluation, BI-RAD 0 Management: Special View Mammogram of the right breast. A clinical breast exam by your physician is recommended on an annual basis and results should be correlated with mammographic findings. Electronically signed and approved by: Casey Espana M.D. Radiologis
== END | disposition home or self-care (01) ==
LOC: RADMAMWWP 09:51
PROVIDERS: ATTEND Family Medicine
DX: Z12.31 Encounter for screening mammogram for malignant neoplasm of breast (principal)
CPT/HCPCS: 77067

== ENCOUNTER → 2021-11-20 | Outpatient (CLI) | payer OTHER ==
--- NOTE | 2021-11-20 10:03 | MM ---
Reason for Exam: Additional evaluation requested from abnormal screening. Last screening mammogram was performed less than 1 month ago. Patient History: Menarche at age 13. First Full-Term at age 27. Patient used Hormonal Contraceptives for 15 years. Risk Values: Laurel 5 year model risk: 1.1%. Laurel 5 year model risk: 1.1%. NCI Lifetime model risk: 8.6%. NCI Lifetime model risk: 8.6%. Prior Study Comparison: 04/20/2019 Bilateral Screening Mammogram, [facility]. 11/01/2020 Bilateral Screening Mammogram, [facility]. 11/07/2021 Bilateral MG screening mammo w CAD, [facility]. Tissue Density: Right: The breast tissue is heterogeneously dense. This may lower the sensitivity of mammography. Findings: Analyzed By CAD. Under compression a suspicious persistent density is not evident. No suspicious spiculated or lobular masses, cluster microcalcifications, architectural distortion, or other secondary signs of malignancy are within the field of view. Overall Assessment: Probably benign, BI-RAD 3 Management: Diagnostic Mammogram of the right breast in 6 months. A clinical breast exam by your physician is recommended on an annual basis and results should be correlated with mammographic findings. This exam should not preclude additional follow-up of suspicious palpable abnormalities. Results were given to the patient verbally at the time of exam. Patient should continue with self breast exam. Electronically signed and approved by: Colby Zurita D.O. Radiologis
== END | disposition home or self-care (01) ==
LOC: RADMAMWWP 09:24
PROVIDERS: ATTEND Family Medicine
DX: R92.8 Other abnormal and inconclusive findings on diagnostic imaging of breast (principal)
CPT/HCPCS: 77065

== ENCOUNTER → 2022-07-02 | Outpatient (CLI) | payer OTHER ==
--- NOTE | 2022-07-02 11:01 | MM ---
Reason for Exam: Follow-up at short interval from prior study. Last screening mammogram was performed 7 month(s) ago. Patient History: Menarche at age 13. First Full-Term at age 27. Hysterectomy at age 51. Patient has history of breast feeding. Patient used Hormonal Contraceptives for 15 years. Risk Values: Laurel 5 year model risk: 1.2%. NCI Lifetime model risk: 8.5%. Prior Study Comparison: 08/08/2016 Bilateral Screening Mammogram, [facility]. 12/10/2017 Bilateral Screening Mammogram, [facility]. 04/20/2019 Bilateral Screening Mammogram, [facility]. 11/01/2020 Bilateral Screening Mammogram, [facility]. 11/07/2021 Bilateral MG screening mammo w CAD, [facility]. 11/20/2021 Right MG work up mamm w CAD RT, [facility]. Tissue Density: Right: The breast tissue is heterogeneously dense. This may lower the sensitivity of mammography. Findings: Analyzed By CAD. No new suspicious mass or calcification within the right breast. Focal asymmetry is redemonstrated within the upper outer right breast at posterior depth and is unchanged. Overall Assessment: Probably benign, BI-RAD 3 Management: Diagnostic Mammogram of both breasts in 6 months. A clinical breast exam by your physician is recommended on an annual basis and results should be correlated with mammographic findings. This exam should not preclude additional follow-up of suspicious palpable abnormalities. Results were given to the patient verbally at the time of exam. Electronically signed and approved by: Yoni Ferguson D.O.
== END | disposition home or self-care (01) ==
LOC: RADMAMWWP 10:22
PROVIDERS: ATTEND Family Medicine
DX: R92.8 Other abnormal and inconclusive findings on diagnostic imaging of breast (principal)
CPT/HCPCS: 77065

== ENCOUNTER → 2022-11-14 | Outpatient (CLI) | payer OTHER ==
--- NOTE | 2022-11-16 14:13 | MR ---
EXAMINATION TYPE: MR cervical spine wo con DATE OF EXAM: 11/14/2022 INDICATION: Patient age: Female; 52 years old; Reason for study: M50.10; PHH. Neck cracks, pain and numbness into Lt side mostly COMPARISON: 06/10/2018, 04/14/2021. TECHNIQUE: Multi planar, multi sequence imaging was performed utilizing: T1-weighted, T2-weighted, an d turbo inversion recovery imaging of the cervical spine. IV Contrast: None FINDINGS: Alignment: The cervical vertebral bodies have preserved heights. Alignment is within normal limits gi enoc patient positioning. Bones: Bone signal is within normal limits. No abnormal bone marrow edema on inversion recovery seque nces. Postsurgical change C5-C6. With susceptibility artifact. Cord: The spinal cord is unremarkable with regards to their signal intensity and morphology. Discs: Multilevel disc desiccation is present. C2-C3: No significant disc pathology. The spinal canal is patent. No neural foraminal stenosis. C3-C4: No significant disc pathology. The spinal canal is patent. No neural foraminal stenosis. C4-C5: No significant disc pathology. The spinal canal is patent. No neural foraminal stenosis. C5-C6: Susceptibility artifact limits evaluation of the neural foramen slightly at this level. Suscep tibility artifact limits evaluation this level. Cord signal is maintained. Bilateral facet and uncove rtebral joint arthropathy are present with mild bilateral neural foraminal stenosis. C6-C7: No significant disc pathology. The spinal canal is patent. No neural foraminal stenosis. C7-T1: No significant disc pathology. The spinal canal is patent. No neural foraminal stenosis. Other: None. IMPRESSION: Post surgical changes from prior. The spinal canal and neural foramen appear patent. Evaluation C5-C6 slightly limited and there may be mild neural foraminal stenosis at this level. The anterior thecal sac is limited due to metallic susceptibility artifact. There is no abnormal cord signal.
== END | disposition home or self-care (01) ==
LOC: RADMRIMAIN 21:45
PROVIDERS: ATTEND Neurological Surgery
DX: M48.02 Spinal stenosis, cervical region (principal); M50.10 Cervical disc disorder with radiculopathy, unspecified cervical region
CPT/HCPCS: 72141

== ENCOUNTER → 2023-01-28 | Outpatient (CLI) | payer OTHER ==
--- NOTE | 2023-01-28 14:46 | MM ---
Reason for Exam: Follow-up at short interval from prior study. Last mammogram was performed 1 year(s) and 2 month(s) ago. Patient History: Menarche at age 13. First Full-Term at age 27. Hysterectomy at age 51. Patient has history of breast feeding. Patient used Hormonal Contraceptives for 15 years. Risk Values: Laurel 5 year model risk: 1.2%. NCI Lifetime model risk: 8.5%. Prior Study Comparison: 11/07/2021 Bilateral MG screening mammo w CAD, [facility]. 11/20/2021 Right MG work up mamm w CAD RT, [facility]. 07/02/2022 Right MG diagnostic mammo RT w CAD, [facility]. Tissue Density: Right: The breast tissue is heterogeneously dense. This may lower the sensitivity of mammography. Findings: Analyzed By CAD. No new suspicious masses, calcifications or distortions. Overall Assessment: Benign, BI-RAD 2 Management: Screening Mammogram of both breasts in 1 year. Results were given to the patient verbally at the time of exam. Patient should continue monthly self-breast exams. A clinical breast exam by your physician is recommended on an annual basis. This exam should not preclude additional follow-up of suspicious palpable abnormalities. Note on Laurel scores and lifetime risk: 1. A Laurel score greater than 3% is considered moderate risk. If this is the case, consider specialist referral to assess eligibility for a risk reducing agent. 2. If overall lifetime risk for the development of breast cancer is 20% or higher, the patient may qualify for future screening with alternating mammogram and breast MRI. Electronically signed and approved by: Andres Muñiz DO
== END | disposition home or self-care (01) ==
LOC: RADMAMWWP 10:29
PROVIDERS: ATTEND Family Medicine
DX: R92.8 Other abnormal and inconclusive findings on diagnostic imaging of breast (principal)
CPT/HCPCS: 77065; G0279; 77061

== ENCOUNTER → 2023-02-16 | Outpatient (CLI) | payer OTHER ==
--- NOTE | 2023-02-17 08:57 | MR ---
EXAMINATION TYPE: MR lumbar spine wo con DATE OF EXAM: 02/16/2023 COMPARISON: 04/14/21 HISTORY: Low back pain into gonzalo lower extremities TECHNIQUE: Multiplanar, multisequence images of the lumbar spine were acquired without IV contrast. L1-L2: Normal disc appearance without desiccation. No herniation, protrusion or disc bulging. No ca nal stenosis is present. Foramina are patent bilaterally. L2-L3: Normal disc appearance without desiccation. No herniation, protrusion or disc bulging. No ca nal stenosis is present. Foramina are patent bilaterally. L3-L4: Mild disc desiccation. Posterior disc bulge with annular tear effaces the ventral thecal sac. There is bilateral lateral recess stenosis and borderline central stenosis. Facet joint arthropathy w ith moderate bilateral foraminal encroachment right greater than left. L4-L5: Grade 1 anterolisthesis is redemonstrated L4 and L5 measuring 5 mm. Severe facet joint arthrop athy. Distortion of the thecal sac with hypertrophy of the ligamentum flavum and moderate central aimee nosis. There is right foraminal encroachment seen. L5-S1: Moderate disc desiccation broad-based posterior disc bulge. There is left lateral recess steno sis with left foraminal encroachment. Right neural foramen is patent. Lumbar segments are intact. No paraspinal masses are identified. Conus medullaris has a normal appe arance. IMPRESSION: 1. Multilevel degenerative disc disease with borderline central stenosis at L3-4, moderate central st enosis at L4-5 left lateral recess stenosis at L5-S1. See above.
== END | disposition home or self-care (01) ==
LOC: RADMRIMAIN 09:43
PROVIDERS: ATTEND Neurological Surgery
DX: M43.16 Spondylolisthesis, lumbar region (principal); M51.36 Other intervertebral disc degeneration, lumbar region; M48.061 Spinal stenosis, lumbar region without neurogenic claudication
CPT/HCPCS: 72148

== ENCOUNTER → 2023-04-08 | Outpatient (CLI) | payer OTHER ==
--- NOTE | 2023-04-08 11:37 | XR ---
EXAMINATION TYPE: XR chest 2V DATE OF EXAM: 04/08/2023 COMPARISON: 07/19/2021 INDICATION: Lumbar pain TECHNIQUE: Frontal and lateral views of the chest are obtained. FINDINGS: The heart size is normal. The pulmonary vasculature is normal. The lungs are clear. IMPRESSION: 1. No acute pulmonary process.
[2023-04-08 11:47] LABS: Partial Thromboplastin Time 24.7 sec (22.0-30.0); Prothrombin Time 10.5 sec (10.0-12.5)
[2023-04-08 15:32] LABS: Basophils # (A) 0.08 X 10*3/uL (0.00-0.10); Basophils % (A) 1.3 %; Eosinophils # (A) 0.21 X 10*3/uL (0.04-0.35); Eosinophils % (A) 3.3 %; HCT 39.7 % (37.2-46.3); HGB 12.9 d/dL (12.0-15.0); Lymphocytes # (A) 1.93 X 10*3/uL (0.90-5.00); Lymphocytes % (A) 30.7 %; MCH 30.6 pg (27.0-32.0); MCHC 32.5 d/dL (32.0-37.0); MCV 94.3 FL (80.0-97.0); Mean Platelet Volume 12.4 FL (9.5-12.2); Monocytes # (A) 0.61 X 10*3/uL (0.20-1.00); Monocytes % (A) 9.7 %; NRBC Per 100 WBC 0 X 10*3/uL (0.00-0.01); Neutrophils # (A) 3.43 X 10*3/uL (1.80-7.70); Neutrophils % (A) 54.5 %; Platelet Count 231 X 10*3/uL (140-440); RBC 4.21 X 10*6/uL (4.10-5.20); RDW 12.9 % (11.5-14.5); WBC 6.29 X 10*3/uL (4.50-10.00)
[2023-04-08 16:20] LABS: Appearance,Urine Clear (Clear); Bilirubin,Urine Negative (Negative); Blood,Urine Negative (Negative); Color,Urine Yellow (Yellow); Ketones,Urine Negative (Negative); Nitrite,Urine Negative (Negative); Specific Gravity,Urine 1.014 (1.001-1.030); Urobilinogen,Urine 0.2 E.U./DL
[2023-04-08 22:20] LABS: ALT 14 U/L (8-44); AST 14 U/L (13-35); Albumin 4.5 d/dL (3.8-4.9); Albumin/Globulin Ratio 2.25 Ratio (1.60-3.17); Alkaline Phosphatase 47 U/L (41-126); Blood Urea Nitrogen 10.5 mg/dL (9.0-27.0); Calcium 9.2 mg/dL (8.7-10.3); Carbon Dioxide 24.5 mmol/L (21.6-31.8); Chloride 105 mmol/L (96-109); Glucose 64 mg/dL (70-110); Potassium 3.9 mmol/L (3.5-5.5); Sodium 140 mmol/L (135-145); Total Bilirubin 0.2 mg/dL (0.3-1.2); Total Protein 6.5 d/dL (6.2-8.2)
== END | disposition home or self-care (01) ==
LOC: LABWHC1 09:45
PROVIDERS: ATTEND Neurological Surgery
DX: Z01.818 Encounter for other preprocedural examination (principal); M43.16 Spondylolisthesis, lumbar region; M47.26 Other spondylosis with radiculopathy, lumbar region; M54.50 Low back pain, unspecified
CPT/HCPCS: 36415; 71046; 80053; 81003; 83036; 85025; 85610; 85730; 86850; 86900; 86901; 87070; 93005